=== PATIENT | male | born 1945 | race African-American/Black ===

== ENCOUNTER 2018-11-27 21:47 | Inpatient (IN) | payer MEDICARE ==
[~2018-11-27] VITALS: Ht 172.7 cm; Wt 107.0 kg
[2018-11-27] MEDS ORDERED: METRONIDAZOLE 500MG/NS 100ML 100 ML IV SCH (23:00)
[2018-11-27] MEDS ORDERED: DIPHENHYDRAMINE HCL INJ 50 MG/ML VIAL IV PRN (23:00)
[2018-11-27] MEDS ORDERED: ENALAPRILAT IV INJ 1.25 MG/ML VIAL IV PRN (23:00)
[2018-11-27] MEDS ORDERED: ACETAMINOPHEN 325 MG TAB PO PRN (23:00)
[2018-11-27] MEDS ORDERED: ONDANSETRON HCL INJ 2MG/ML 2ML 2 MG/ML VIAL IV PRN (23:00)
[2018-11-27] MEDS ORDERED: HYDROMORPHONE 1MG/1ML INJ IV PRN (23:00)
[2018-11-27] MEDS ORDERED: SODIUM CHLORIDE 0.9% 1000ML 1,000 ML IV STA (23:37)
[2018-11-28] VITALS (8 sets, daily range): BP systolic 128–151; BP diastolic 59–65
[2018-11-28] MEDS ORDERED: PIPER-TAZ 3.375 GM 50 ML IV SCH
--- NOTE | 2018-11-28 00:36 | NUR ---
Called [facility] to transport pt to [facility] hospital room 212
--- NOTE | 2018-11-28 00:43 | NUR ---
Report to GENEVA Cabral
--- NOTE | 2018-11-28 00:53 | Diagnostic Imaging Report ---
EXAM: CT Abdomen and Pelvis WITH contrast INDICATION: Pain. COMPARISON: None. TECHNIQUE: Abdomen and pelvis were scanned utilizing a multidetector helical scanner from the lung base to the pubic symphysis after administration of IV contrast. Coronal and sagittal reformations were obtained. Routine protocol was performed. Scan was performed when during portal venous phase. IV CONTRAST: 100 cc Isovue-370 ORAL CONTRAST: Water RADIATION DOSE: Total DLP: 822.08 mGy*cm Estimated effective dose: (DLP x 0.015 x size factor) mcv COMPLICATIONS: None FINDINGS: LINES and TUBES: None. LOWER THORAX: Coronary artery calcifications. Bibasilar reticular nodular densities particularly in the lingula with tree-in-bud pattern may be infectious or inflammatory in etiology. HEPATOBILIARY: Heterogeneous low attenuation of the hepatic parenchyma suggestive of steatosis. No focal hepatic lesions. No biliary ductal dilation. GALLBLADDER: No radio-opaque stones or sludge. No wall thickening. SPLEEN: No splenomegaly. PANCREAS: No focal masses or ductal dilatation. ADRENALS: No adrenal nodules KIDNEYS/URETERS: Kidneys enhance symmetrically. No hydronephrosis. No cystic or solid mass lesions. 4.7 mm nonobstructing calculus in the upper pole of the left kidney. GI TRACT: No abnormal distention, wall thickening, or evidence of bowel obstruction. Moderate to large volume of stool within the colon. Large volume of stool within the rectosigmoid. Appendix is normal. PELVIC ORGANS/BLADDER: Status post prostatectomy. LYMPH NODES: No lymphadenopathy. VESSELS: There is moderate atherosclerotic disease in the aorta and major arterial branches. Reflux of contrast into the intrahepatic IVC and hepatic veins may be related to right-sided failure versus PERITONEUM / RETROPERITONEUM: No free air or fluid. BONES: Median sternotomy wires. Multilevel Schmorl nodes. SOFT TISSUES: Tiny umbilical hernia containing a knuckle of small bowel loop. IMPRESSION: 1. Findings may reflect constipation with fecal impaction. 2. Nonobstructing left renal calculus. 3. Bibasilar reticular nodular opacities may be infectious or inflammatory in etiology; correlate clinically. Signed by: Dr. Dorene Jiménez M.D. on 11/28/2018 12:49 AM
[2018-11-28] MEDS ORDERED: MULTIVITAMINS1 EAC6 (01:03)
[2018-11-28] MEDS ORDERED: ALBUTEROL0.63 MG/3 IH (01:03)
[2018-11-28] MEDS ORDERED: MECLIZINE HCL12.5 MG PO (01:03)
[2018-11-28] MEDS ORDERED: NITROGLYCERIN0.4 MG SL (01:03)
[2018-11-28] MEDS ORDERED: MOMETASONE FURO30 ML INH (01:03)
[2018-11-28] MEDS ORDERED: SPIRIVA18 MCG INH (01:03)
[2018-11-28] MEDS ORDERED: GABAPENTIN300 MG PO (01:03)
[2018-11-28] MEDS ORDERED: SENNOSIDES8.6 MG PO (01:03)
[2018-11-28] MEDS ORDERED: ATORVASTATIN CA80 MG PO (01:03)
[2018-11-28] MEDS ORDERED: METOPROLOL TART25 MG PO (01:03)
[2018-11-28] MEDS ORDERED: AMLODIPINE BESYL5 MG PO (01:03)
[2018-11-28] MEDS ORDERED: PANTOPRAZOLE SO20 MG PO (01:03)
[2018-11-28] MEDS ORDERED: MORPHINE SULFATE INJ 4 MG/ML INJ 1ML IV STA (01:09)
--- NOTE | 2018-11-28 01:12 | NUR ---
[facility] here to transport pt to room 212
[2018-11-28] MEDS: SODIUM CHLORIDE 0.45% 1,000 ML IV SCH ×2 (02:04→06:56)
[2018-11-28] MEDS ORDERED: DOCUSATE SODIU100 MG PO (02:08)
[2018-11-28] MEDS ORDERED: ASPIRIN EC81 MG PO (02:08)
[2018-11-28] MEDS ORDERED: BISACODYL 5 MG TAB EC PO ONE ×3 (05:00→06:00)
[2018-11-28] MEDS: HYDROMORPHONE 2MG/ML 2 MG/ML ML IV PRN ×3 (06:12→21:26)
--- NOTE | 2018-11-28 07:00 | NUR ---
BEDSIDE SHIFT CHANGE REPORT FROM NIGHT RN. PT DENIES NEEDS AT THIS TIME.
[2018-11-28] MEDS: PIPER-TAZ 3.375 GM 50 ML IV SCH ×3 (08:00→19:52)
[2018-11-28] MEDS: METRONIDAZOLE 500MG/NS 100ML 100 ML IV SCH ×2 (08:00→18:36)
[2018-11-28] MEDS ORDERED: PANTOPRAZOLE 40 MG 10ML VIAL IV SCH (09:00)
[2018-11-28] MEDS ORDERED: FAMOTIDINE 20 MG/2 ML VIAL IV SCH (09:00)
--- NOTE | 2018-11-28 10:43 | NUR ---
H&P cc: rectal pain HPI: 73yoM, PCP ?, developed rectal pain, found to have anorectal abscess. Pt denies cp/sob. PMH: HTN, HLD, GERD, CAD s/p CABG, Prostate CA s/p sx PSHx: CABG, prostate Allergies; see emr FH/SH; ; no cig/etoh Meds; see MAR ROS: unreliable v/s; revd PE tired appearing anicteric ns1s2 mod bs soft nt nd rectal region with no visible lesion no e/t awake; mott skin dry flat affect labs/med; revd A/P: 73yoM Anorectal abscess- IV abx; sx consult; Obesity BMI 34.4- screen for DM A.flutter- per cardio; AV blockade CAD with hx CABG- Systolic CHF LVEF 30%; will need furthr eval; may beed eval of coronaries now versus later- defer to cardio HTN- BB HLD- statin GERD- ppi Prop: scd; ppi dispo: Calos Shelton MD, PhD.
--- NOTE | 2018-11-28 11:00 | NUR ---
DISCUSSED PT WITH DR. PEARSON. PT NOT READY TO BE CLEARED FOR SURGERY AT THIS TIME. THIS NURSE CALLED OR AND DIRECTOR OF CONTENT MARKETING. OR WILL CONTACT DR. JOHNSON. THIS NURSE ALSO CALLED AND NOTIFIED PT'S POA.
[2018-11-28 12:00] LABS: CHOL/HDL RATIO 2.5 (3.9-4.7)
[2018-11-28] MEDS: DOCUSATE SODIUM 100 MG CAP PO SCH (12:35)
[2018-11-28] MEDS: AMLODIPINE BESYLATE 5 MG TAB PO SCH (12:35)
--- NOTE | 2018-11-28 12:43 | Consultation ---
DATE OF CONSULTATION: 11/28/2018 HISTORY OF PRESENT ILLNESS: The patient is a 73-year-old male, presents with complaints of pain and swelling with some drainage from the perianal area. Says this has been going on for about a week. He has had some subjective fever. He also had some difficulty controlling his bowels. He has CT of the abdomen and pelvis that did not reveal any definite abnormality in this area except for large amount of stool within the rectum. PAST MEDICAL HISTORY: Significant for coronary artery disease, previous coronary artery bypass surgery, history of hypercholesterolemia, hypertension, and also COPD. MEDICATIONS: At home are albuterol, amlodipine, aspirin, atorvastatin, Colace, gabapentin, meclizine, metoprolol, mometasone, vitamins, nitroglycerin, Protonix, sennosides, and tiotropium. ALLERGIES: HE HAS NO KNOWN ALLERGIES. FAMILY HISTORY: Noncontributory. SOCIAL HISTORY: The patient is a former smoker. Former drinker, but quit about four years ago. REVIEW OF SYSTEMS: As stated above, otherwise was negative. PHYSICAL EXAMINATION: GENERAL: The patient is awake and alert. VITAL SIGNS: Normal. He is not tachycardic. He is afebrile. HEENT: There is no scleral icterus. NECK: No masses. LUNGS: Equal breath sounds are clear bilaterally. CARDIAC: Regular rate and rhythm. Normal S1, S2 without murmur, S3, or S4. He has a healed sternotomy wound. ABDOMEN: Soft. There is no tenderness. No mass. No organomegaly. RECTAL: Stool in the perianal area. There is swelling and tenderness in the left perianal area. EXTREMITIES: Have no edema. NEUROLOGIC: Grossly intact. LABS: White blood cell count was normal. Differential was normal. Chemistries were essentially normal. ASSESSMENT: A 73-year-old male with perirectal abscess with underlying cardiac disease. Also, he is on blood thinners per history. The patient will best be treated with incision and drainage of the abscess. Plan to schedule for later today and consult Cardiology for preop cardiac evaluation. Procedure was explained to the patient including risks, benefits, and alternatives. He understands. He has had the opportunity to ask questions. Thank you for asking me to see Mr. Harden. MD ERED Vieira/CRISSY /[id number]
[2018-11-28] MEDS: MECLIZINE HCL 12.5 MG TAB PO SCH ×2 (14:29→20:42)
[2018-11-28] MEDS: GABAPENTIN 300 MG CAP PO SCH ×2 (14:29→20:43)
--- NOTE | 2018-11-28 15:29 | Consultation ---
DATE OF CONSULTATION: 11/28/2018 Cardiology Consultation Thank you so much for asking me to see this nice man in consultation. Mr. Harden is a complex and elderly 73-year-old black man, who presented to the outlying emergency room overnight with a complaint of what he thought was hemorrhoids. HISTORY OF PRESENT ILLNESS: The patient reports that he has been having rectal pain and been having only "tiny bowel movements" since last , the 20 of November. He decided to visit the emergency room. Past medical history is actually long and complex. He is currently living in [place], but visiting family here. He had a coronary artery bypass graft surgery at the [facility] in July 2017 he reports after having "two heart attacks," further records are not available. He has a medication list available from the [facility] that indicates albuterol inhaler, amlodipine 5 mg daily, atorvastatin 80 mg daily. He seems to have stopped clopidogrel, it is crossed off. Gabapentin 300 mg three times a day, meclizine 25 mg three times a day p.r.n., metoprolol tartrate 25 mg twice a day, mometasone inhaler, nitroglycerin sublingual p.r.n., pantoprazole 40 mg daily, sennosides, tiotropium, aspirin 81 mg daily, and Colace 100 mg twice a day. REVIEW OF SYSTEMS: Not available. The patient is a poor historian and keeps referring me to his daughter who keeps track of his medical problems, but she is not available. PERSONAL AND SOCIAL HISTORY: The patient reports he is not smoking. 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 PHYSICAL EXAMINATION: GENERAL: At this time shows a large obese man who is 5 feet 8 inches tall, weighing 226 pounds. He is slow to answer questions, but alert and responsive, fluent. VITAL SIGNS: Blood pressure 137/61, pulse 67 and regular. HEAD, EYES, EARS, NOSE, AND THROAT: Relatively unremarkable. NECK: No jugular venous distention. No bruits. THORAX: Has healed midline sternotomy. HEART: Heart sounds S1, S2 are equal. No murmurs. LUNGS: Relatively clear. ABDOMEN: Protuberant with chest tube incisions healed. Normal bowel sounds. Nontender. EXTREMITIES: No cyanosis, clubbing, or edema. PERTINENT LABORATORY STUDIES: On the chart show hemoglobin of 8.0, glucose 112. CT scan of the abdomen suggest obstipation, but no obstruction. No EKG on the chart. However, echocardiogram has been done by the clean room technician, I have not read it. The earlier report estimate ejection fraction is 30% with left ventricular hypertrophy. ASSESSMENT: 1. Constipation/rectal abscess. 2. Coronary artery disease with previous coronary artery bypass graft surgery in 2017 after two myocardial infarctions by his report. 3. Anemia. PLAN: We will check EKG and review echocardiogram. This is a complex patient and complex setting. He is not ready for any surgery at this time. MD CHAGO Starkey/CRISSY /[id number] cc: MD Terell Damian MD
[2018-11-28] MEDS: METOPROLOL TARTRATE 25 MG TAB PO SCH (18:37)
--- NOTE | 2018-11-28 19:16 | NUR ---
NO STOOL OR BM THIS SHIFT.
--- NOTE | 2018-11-28 20:42 | NUR ---
COLLECTED STOOL SAMPLE AND SENT TO LAB
[2018-11-28] MEDS: ATORVASTATIN 40 MG TAB PO SCH (20:43)
[2018-11-28] MEDS ORDERED: NON-FORMULARY MEDICATION (Atorvastatin Calcium 80 MG) PO SCH (21:00)
[2018-11-29] VITALS (8 sets, daily range): BP systolic 110–152; BP diastolic 56–82
[2018-11-29] MEDS: METRONIDAZOLE 500MG/NS 100ML 100 ML IV SCH ×3 (00:50→16:00)
[2018-11-29] MEDS: PIPER-TAZ 3.375 GM 50 ML IV SCH ×4 (01:48→20:00)
--- NOTE | 2018-11-29 07:17 | NUR ---
pt asleep resp even and unlabored at this time no distress noted, pt arousal to touch , no c/o pain when asked , call light in reach.
[2018-11-29] MEDS: PANTOPRAZOLE SOD 40 MG TABEC PO SCH (07:30)
[2018-11-29] MEDS: MECLIZINE HCL 12.5 MG TAB PO SCH ×3 (09:00→21:00)
[2018-11-29] MEDS ORDERED: NON-FORMULARY MEDICATION (Pantoprazole Sodium 40 MG) PO SCH (09:00)
[2018-11-29] MEDS: DOCUSATE SODIUM 100 MG CAP PO SCH (09:00)
[2018-11-29] MEDS: AMLODIPINE BESYLATE 5 MG TAB PO SCH (09:00)
[2018-11-29] MEDS: GABAPENTIN 300 MG CAP PO SCH ×3 (09:00→21:00)
[2018-11-29] MEDS: METOPROLOL TARTRATE 25 MG TAB PO SCH ×2 (13:30→17:00)
--- NOTE | 2018-11-29 13:45 | NUR ---
SOCIAL WORK INITIAL ASSESSMENT Ceramic Painter to bedside to discuss plan of care with patient/family. CM/SW role and care transitions discussed. Anticipated discharge plan discussed along with duration of care. CM/SW discussed patients right to make decisions in care. CM/SW work hours given. Patient lives: IN APARTMENT WITH DAUGHTER BUT TRAVELS BACK AND FORTH TO FAMILY IN [place] Admit/Transfer: VIA ED POA/Emergency contact: JUDIE [phone] Current/Previous Home Health: NONE PCP/Follow-up Care: [facility] Current/Previous DME: RANJANA LEACH Other Services: NONE Employment Status: RETIRED Areas of Concerns: NONE Referral Needs: NONE Education Needs: NONE IMM/EWING given and signed (if applicable): NA Goal for discharge: RETURN HOME CM/SW left business card at the bedside with contact information. Name and number was also written on the patients whiteboard. Patient verbalized understanding of discussion. CM will follow-up with ongoing discharge and transition of care needs.
--- NOTE | 2018-11-29 15:20 | NUR ---
IM_ progress note O/N; no events ROS: unreliable v/s; revd PE tired appearing anicteric ns1s2 mod bs soft nt nd rectal region with no visible lesion no e/t awake; mott skin dry flat affect labs/med; revd A/P: 73yoM Anorectal abscess- IV abx; sx consult; Obesity BMI 34.4- screen for DM A.flutter- per cardio; AV blockade CAD with hx CABG- Systolic CHF LVEF 30%; will need furthr eval; may beed eval of coronaries now versus later- defer to cardio HTN- BB HLD- statin GERD- ppi Prop: scd; ppi dispo: 11/29 a1c/LDL 6.7/40. Check labs; cont abx; Calos Shelton MD, PhD.
[2018-11-29 17:06] LABS: BASOPHILS % 0.2 % (0.0-1.0); EOSINOPHILS # (AUTO) 0.1 (0.0-0.4); EOSINOPHILS % 0.9 % (0.0-6.0); HEMATOCRIT 39.5 % (38.2-49.6); HEMOGLOBIN 13.7 g/dL (14.0-18.0); LYMPHOCYTES # (AUTO) 1.8 (1.0-3.2); LYMPHOCYTES % 20.8 % (18.0-39.1); MEAN CORPUSCULAR HEMOGLOBIN 31.5 pg (28-32); MEAN CORPUSCULAR HGB CONC 34.7 g/dL (31-35); MEAN CORPUSCULAR VOLUME 90.8 fL (81-99); MONOCYTES # (AUTO) 0.9 (0.2-0.8); MONOCYTES % 9.9 % (4.4-11.3); NEUTROPHILS # (AUTO) 5.9 (2.1-6.9); PLATELET COUNT 250 x10e3/uL (140-360); RED BLOOD COUNT 4.35 x10e6/uL (4.3-5.7); RED CELL DISTRIBUTION WIDTH 14.4 % (11.7-14.4)
[2018-11-29] MEDS ORDERED: ONDANSETRON HCL 4 MG ORAL DISINTEGRATING TAB PO PRN (17:30)
[2018-11-29 18:04] LABS: BLOOD UREA NITROGEN 19 mg/dL (7-26); BUN/CREATININE RATIO 15 (6-25); CALCIUM 8.4 mg/dL (8.4-10.2); CARBON DIOXIDE 23 mmol/L (22-29); CHLORIDE 99 mmol/L (98-107); CREATININE, SERUM 1.27 mg/dL (0.72-1.25); EST GLOMERULAR FILTRATION RATE > 60 ML/MIN (60-); GLUCOSE 94 mg/dL (74-118); MAGNESIUM 1.7 MG/DL (1.3-2.1); PHOSPHORUS 3.8 MG/DL (2.3-4.7); SODIUM 136 mmol/L (136-145)
--- NOTE | 2018-11-29 19:41 | NUR ---
report given to oncoming nurse, for cont. care.
--- NOTE | 2018-11-29 20:55 | NUR ---
Received change of shift report from AM nurse. Rounds completed.
[2018-11-29] MEDS: ATORVASTATIN 40 MG TAB PO SCH (21:00)
[2018-11-29] MEDS ORDERED: POTASSIUM CHLORIDE 20 MEQ TAB CR PO STA (22:06)
[2018-11-30] VITALS (7 sets, daily range): BP systolic 101–133; BP diastolic 50–65
--- NOTE | 2018-11-30 00:01 | NUR ---
Dr Wade on the floor to see patient. Orders received.
[2018-11-30] MEDS: PIPER-TAZ 3.375 GM 50 ML IV SCH ×4 (01:35→20:00)
--- NOTE | 2018-11-30 02:23 | NUR ---
Patient resting quitly at this time with no c/o pain ord discomfort. Patient states he had 6 BM diarehea. is aware.
[2018-11-30 05:56] LABS: BASOPHILS % 0.5 % (0.0-1.0); EOSINOPHILS # (AUTO) 0.1 (0.0-0.4); EOSINOPHILS % 1.4 % (0.0-6.0); HEMATOCRIT 35.8 % (38.2-49.6); HEMOGLOBIN 12.1 g/dL (14.0-18.0); LYMPHOCYTES # (AUTO) 1.8 (1.0-3.2); LYMPHOCYTES % 26.7 % (18.0-39.1); MEAN CORPUSCULAR HEMOGLOBIN 30.9 pg (28-32); MEAN CORPUSCULAR HGB CONC 33.8 g/dL (31-35); MEAN CORPUSCULAR VOLUME 91.6 fL (81-99); MONOCYTES # (AUTO) 0.5 (0.2-0.8); MONOCYTES % 8.1 % (4.4-11.3); NEUTROPHILS # (AUTO) 4.2 (2.1-6.9); NEUTROPHILS % 62.8 % (38.7-80.0); PLATELET COUNT 206 x10e3/uL (140-360); RED BLOOD COUNT 3.91 x10e6/uL (4.3-5.7); RED CELL DISTRIBUTION WIDTH 14.4 % (11.7-14.4)
[2018-11-30 06:10] LABS: MAGNESIUM 1.7 MG/DL (1.3-2.1); PHOSPHORUS 2.3 MG/DL (2.3-4.7); POTASSIUM 3.2 mmol/L (3.5-5.1)
[2018-11-30 06:29] LABS: ALANINE AMINOTRANSFERASE 17 IU/L (0-55); ALBUMIN 2.4 g/dL (3.5-5.0); ALBUMIN/GLOBULIN RATIO 0.6 (0.8-2.0); ALKALINE PHOSPHATASE 80 IU/L (40-150); ANION GAP 13.2 mmol/L (8-16); BLOOD UREA NITROGEN 17 mg/dL (7-26); BUN/CREATININE RATIO 15 (6-25); CALCIUM 8.1 mg/dL (8.4-10.2); CARBON DIOXIDE 25 mmol/L (22-29); CHLORIDE 104 mmol/L (98-107); CREATININE, SERUM 1.11 mg/dL (0.72-1.25); EST GLOMERULAR FILTRATION RATE > 60 ML/MIN (60-); GLUCOSE 156 mg/dL (74-118); POTASSIUM 3.2 mmol/L (3.5-5.1); SODIUM 139 mmol/L (136-145)
--- NOTE | 2018-11-30 07:18 | NUR ---
pt asleep resp even and unlabored, pt lying on his left side pt arousal to name and touch no distress noted, call light in reach.
[2018-11-30] MEDS: PANTOPRAZOLE SOD 40 MG TABEC PO SCH (07:30)
[2018-11-30] MEDS: METRONIDAZOLE 500MG/NS 100ML 100 ML IV SCH ×3 (08:00→18:06)
[2018-11-30] MEDS: AMLODIPINE BESYLATE 5 MG TAB PO SCH (09:00)
[2018-11-30] MEDS: METOPROLOL TARTRATE 25 MG TAB PO SCH ×2 (09:00→18:09)
[2018-11-30] MEDS: DOCUSATE SODIUM 100 MG CAP PO SCH (09:00)
[2018-11-30] MEDS: GABAPENTIN 300 MG CAP PO SCH ×3 (09:00→20:09)
[2018-11-30] MEDS: MECLIZINE HCL 12.5 MG TAB PO SCH ×3 (09:00→20:09)
[2018-11-30] MEDS ORDERED: SODIUM CHLORIDE 0.9% 250ML 250 ML ONE (11:10)
--- NOTE | 2018-11-30 18:07 | NUR ---
IM_ progress note O/N; no events ROS: unreliable v/s; revd PE tired appearing anicteric ns1s2 mod bs soft nt nd rectal region with no visible lesion no e/t awake; mott skin dry flat affect labs/med; revd A/P: 73yoM Anorectal abscess- IV abx; sx consult; Obesity BMI 34.4- screen for DM A.flutter- per cardio; AV blockade CAD with hx CABG- Systolic CHF LVEF 30%; will need furthr eval; may beed eval of coronaries now versus later- defer to cardio HTN- BB HLD- statin GERD- ppi Prop: scd; ppi dispo: 11/29 a1c/LDL 6.7/40. Check labs; cont abx; 11/30 replace Britt; Calos Shelton MD, PhD.
[2018-11-30] MEDS ORDERED: POTASSIUM CHLORIDE 20 MEQ TAB CR PO ONE (18:30)
--- NOTE | 2018-11-30 19:26 | NUR ---
report given to oncoming nurse, for continued care.
[2018-11-30] MEDS: ATORVASTATIN 40 MG TAB PO SCH (20:09)
[2018-12-01] VITALS (8 sets, daily range): BP systolic 112–167; BP diastolic 53–77
[2018-12-01] MEDS: PIPER-TAZ 3.375 GM 50 ML IV SCH ×4 (02:00→20:17)
--- NOTE | 2018-12-01 07:00 | NUR ---
RCD PT AT BED PT IS ALERT AND ORIENTED RESTING ON BED NO SIGNS OF ANY DISTRESS NOTED BED LOW AND LOCKED CALL LIGHT IN REACH
[2018-12-01] MEDS: PANTOPRAZOLE SOD 40 MG TABEC PO SCH (07:30)
[2018-12-01] MEDS: METRONIDAZOLE 500MG/NS 100ML 100 ML IV SCH ×3 (08:00→16:00)
[2018-12-01] MEDS: DOCUSATE SODIUM 100 MG CAP PO SCH (09:00)
[2018-12-01] MEDS: AMLODIPINE BESYLATE 5 MG TAB PO SCH (09:00)
[2018-12-01] MEDS: MECLIZINE HCL 12.5 MG TAB PO SCH ×3 (09:00→21:25)
[2018-12-01] MEDS: METOPROLOL TARTRATE 25 MG TAB PO SCH ×2 (09:00→17:00)
[2018-12-01] MEDS: GABAPENTIN 300 MG CAP PO SCH ×3 (09:00→21:25)
--- NOTE | 2018-12-01 10:02 | NUR ---
IM_ progress note O/N; no events ROS: unreliable v/s; revd PE tired appearing anicteric ns1s2 mod bs soft nt nd rectal region with no visible lesion no e/t awake; mott skin dry flat affect labs/med; revd A/P: 73yoM Anorectal abscess- IV abx; sx consult; Obesity BMI 34.4- screen for DM A.flutter- per cardio; AV blockade CAD with hx CABG- Systolic CHF LVEF 30%; will need furthr eval; may beed eval of coronaries now versus later- defer to cardio HTN- BB HLD- statin GERD- ppi Prop: scd; ppi dispo: 11/29 a1c/LDL 6.7/40. Check labs; cont abx; 11/30 replace K; 12/01 check K Calos Shelton MD, PhD.
--- NOTE | 2018-12-01 19:00 | NUR ---
PT RESTING ON BED BED SIDE REPORT GIVEN TO ONCOMING NURSE
[2018-12-01] MEDS: ATORVASTATIN 40 MG TAB PO SCH (21:25)
[2018-12-02] VITALS (7 sets, daily range): BP systolic 119–186; BP diastolic 56–81
[2018-12-02] MEDS: METRONIDAZOLE 500MG/NS 100ML 100 ML IV SCH ×3 (00:40→16:00)
[2018-12-02] MEDS ORDERED: BISACODYL 5 MG TAB EC PO ONE ×2 (01:00→01:30)
[2018-12-02] MEDS: PIPER-TAZ 3.375 GM 50 ML IV SCH ×4 (01:55→20:15)
[2018-12-02 06:17] LABS: BASOPHILS % 0.4 % (0.0-1.0); EOSINOPHILS # (AUTO) 0.1 (0.0-0.4); EOSINOPHILS % 1.8 % (0.0-6.0); HEMOGLOBIN 11.9 g/dL (14.0-18.0); LYMPHOCYTES # (AUTO) 1.4 (1.0-3.2); LYMPHOCYTES % 27.5 % (18.0-39.1); MEAN CORPUSCULAR HEMOGLOBIN 31.1 pg (28-32); MEAN CORPUSCULAR VOLUME 91.4 fL (81-99); MONOCYTES # (AUTO) 0.5 (0.2-0.8); NEUTROPHILS # (AUTO) 3.1 (2.1-6.9); NEUTROPHILS % 60.9 % (38.7-80.0); PLATELET COUNT 193 x10e3/uL (140-360); RED BLOOD COUNT 3.83 x10e6/uL (4.3-5.7); RED CELL DISTRIBUTION WIDTH 14.6 % (11.7-14.4)
[2018-12-02] MEDS ORDERED: DIATRIZOATE MEGL/DIATRIZOA SOD 30 ML BTL PO ONE (06:18)
[2018-12-02 06:32] LABS: ANION GAP 11.3 mmol/L (8-16); BLOOD UREA NITROGEN 9 mg/dL (7-26); BUN/CREATININE RATIO 10 (6-25); CARBON DIOXIDE 26 mmol/L (22-29); CHLORIDE 103 mmol/L (98-107); EST GLOMERULAR FILTRATION RATE > 60 ML/MIN (60-); GLUCOSE 101 mg/dL (74-118); POTASSIUM 3.3 mmol/L (3.5-5.1); SODIUM 137 mmol/L (136-145)
--- NOTE | 2018-12-02 07:16 | NUR ---
RCD PT AT BED PT IS ALERT AND ORIENTED PT RESTING ON BED NO SIGNS OF ANY DISTRESS NOTED IV PATENT BED LOW AND LOCKED CALL LIGHT IN REACH
[2018-12-02] MEDS: PANTOPRAZOLE SOD 40 MG TABEC PO SCH (07:30)
--- NOTE | 2018-12-02 07:56 | NUR ---
PT WENT TO PROCEDURE IN SAFE CONDITION
--- NOTE | 2018-12-02 07:56 | NUR ---
IM_ progress note O/N; no events ROS: unreliable v/s; revd PE tired appearing anicteric ns1s2 mod bs soft nt nd rectal region with no visible lesion no e/t awake; mott skin dry flat affect labs/med; revd A/P: 73yoM Anorectal abscess- IV abx; sx consult; Obesity BMI 34.4- screen for DM A.flutter- per cardio; AV blockade CAD with hx CABG- Systolic CHF LVEF 30%; will need furthr eval; may beed eval of coronaries now versus later- defer to cardio HTN- BB HLD- statin GERD- ppi Prop: scd; ppi dispo: 11/29 a1c/LDL 6.7/40. Check labs; cont abx; 11/30 replace K; 12/01 check K 12/02 replace K with 40PO. f/u repeat CT today. CT unclear; may need endoscopy for visualization vs MRI. Calos Shelton MD, PhD.
[2018-12-02] MEDS ORDERED: POTASSIUM CHLORIDE 20 MEQ TAB CR PO NR (08:30)
--- NOTE | 2018-12-02 08:51 | Diagnostic Imaging Report ---
EXAM: CT Abdomen and Pelvis WITH contrast INDICATION: Anorectal abscess, cancer. COMPARISON: CT Abdomen/Pelvis with contrast 11/27/2018. TECHNIQUE: Abdomen and pelvis were scanned utilizing a multidetector helical scanner from the lung base to the pubic symphysis after administration of IV contrast. Coronal and sagittal reformations were obtained. Routine protocol was performed. Scan was performed when during portal venous phase. IV CONTRAST: 100 cc Isovue-370 ORAL CONTRAST: Water RADIATION DOSE: Total DLP: 764.65 mGy*cm Dose modulation, iterative reconstruction, and/or weight based adjustment of the mA/kV was utilized to reduce the radiation dose to as low as reasonably achievable. COMPLICATIONS: None FINDINGS: LINES and TUBES: None. LOWER THORAX: Coronary artery calcifications. Interval development of trace bilateral pleural effusions. Again noted are bilateral dependent tree-in-bud and nodular opacities, most pronounced in the lingula and left lower lobe, and to a lesser extent in the right middle and lower lobes. HEPATOBILIARY: Heterogeneous low attenuation of the hepatic parenchyma suggestive of steatosis. No focal hepatic lesions. No biliary ductal dilation. GALLBLADDER: The gallbladder is decompressed without evidence of wall thickening or stone. There is pericholecystic fluid. SPLEEN: No splenomegaly. PANCREAS: No focal masses or ductal dilatation. ADRENALS: No adrenal nodules KIDNEYS/URETERS: Kidneys enhance symmetrically. No hydronephrosis. No evidence of mass. There is a 5 mm nonobstructing calculus in left upper pole stone. GI TRACT: No abnormal distention, wall thickening, or evidence of bowel obstruction. Moderate to large volume of stool within the colon, as before. Interval decrease of stool within the rectum. The anorectal region is not well evaluated. There is mild stranding surrounding the distal rectum (series 2, image 79). Appendix is normal. PELVIC ORGANS/BLADDER: Status post prostatectomy. The bladder is partially decompressed. LYMPH NODES: No lymphadenopathy. VESSELS: There is moderate to extensive atherosclerotic disease in the aorta and branch vessels. There is stenosis at the origins of the celiac artery and SMA, although the degree of stenosis is difficult to quantify. Both vessels appear patent. PERITONEUM / RETROPERITONEUM: No free air or fluid. BONES/SOFT TISSUES: No acute osseous abnormality. No suspicious lytic or blastic lesions. Tiny umbilical hernia. IMPRESSION: The distal rectum and anus is not well evaluated on this study. There is mild stranding surrounding the distal rectum. This is of unclear etiology and may be post surgical or inflammatory. The reason for this study was reportedly for anorectal abscess/cancer. No definite abscess is visualized. If there is clinical concern for anorectal pathology, MRI is more sensitive for evaluation. Also suggest direct inspection for mass. Interval decrease in stool within the rectum. Dependent lower lung tree in bud opacities with interval development of trace bilateral pleural effusions, likely reflecting infectious process. Suggest follow-up chest CT in 3 months to assess for resolution. Decompressed gallbladder with pericholecystic fluid, likely reflecting volume status rather than cholecystitis. Diffuse hepatic steatosis. Signed by: Dr. Giselle Mckeon MD on 12/02/2018 8:48 AM
[2018-12-02] MEDS: MECLIZINE HCL 12.5 MG TAB PO SCH ×3 (08:55→20:58)
[2018-12-02] MEDS: LUBIPROSTONE 24 MCG CAP PO SCH ×3 (08:55→18:18)
[2018-12-02] MEDS: GABAPENTIN 300 MG CAP PO SCH ×3 (08:55→20:58)
[2018-12-02] MEDS: DOCUSATE SODIUM 100 MG CAP PO SCH (08:55)
[2018-12-02] MEDS ORDERED: SODIUM CHLORIDE 0.9% 50ML 50 ML ONE (08:56)
[2018-12-02] MEDS: AMLODIPINE BESYLATE 5 MG TAB PO SCH (08:56)
[2018-12-02] MEDS: METOPROLOL TARTRATE 25 MG TAB PO SCH ×2 (08:56→17:00)
[2018-12-02] MEDS ORDERED: IOPAMIDOL 370 MG/ML 200 ML INFUS..BTL INJ ONE (08:56)
--- NOTE | 2018-12-02 18:12 | NUR ---
PAGED AND CLARIFIED THE AMITIZA DOSE 8 MCG IS NOT AVAILABLE IN THE PHARMACY HE CHANGED THE DOSE
--- NOTE | 2018-12-02 18:39 | NUR ---
PT RESTING ON BED BED SIDE REPORT GIVEN TO ONCOMING NURSE
[2018-12-02] MEDS: ATORVASTATIN 40 MG TAB PO SCH (20:58)
[2018-12-03] VITALS: BP 149/67
[2018-12-03] MEDS: METRONIDAZOLE 500MG/NS 100ML 100 ML IV SCH ×2 (00:22→09:30)
[2018-12-03] MEDS: PIPER-TAZ 3.375 GM 50 ML IV SCH ×2 (01:30→09:17)
[2018-12-03 04:00] VITALS: BP 142/58
[2018-12-03 06:07] LABS: BASOPHILS % 0.4 % (0.0-1.0); EOSINOPHILS # (AUTO) 0.1 (0.0-0.4); EOSINOPHILS % 1.3 % (0.0-6.0); HEMATOCRIT 36.4 % (38.2-49.6); HEMOGLOBIN 12.3 g/dL (14.0-18.0); LYMPHOCYTES # (AUTO) 1.3 (1.0-3.2); LYMPHOCYTES % 24.8 % (18.0-39.1); MEAN CORPUSCULAR HEMOGLOBIN 31.3 pg (28-32); MEAN CORPUSCULAR HGB CONC 33.8 g/dL (31-35); MEAN CORPUSCULAR VOLUME 92.6 fL (81-99); MONOCYTES # (AUTO) 0.5 (0.2-0.8); MONOCYTES % 8.6 % (4.4-11.3); NEUTROPHILS # (AUTO) 3.4 (2.1-6.9); NEUTROPHILS % 64.5 % (38.7-80.0); PLATELET COUNT 216 x10e3/uL (140-360); RED BLOOD COUNT 3.93 x10e6/uL (4.3-5.7); RED CELL DISTRIBUTION WIDTH 14.6 % (11.7-14.4)
[2018-12-03 06:31] LABS: ANION GAP 11.6 mmol/L (8-16); BLOOD UREA NITROGEN 7 mg/dL (7-26); BUN/CREATININE RATIO 8 (6-25); CALCIUM 8.4 mg/dL (8.4-10.2); CARBON DIOXIDE 22 mmol/L (22-29); CHLORIDE 106 mmol/L (98-107); CREATININE, SERUM 0.84 mg/dL (0.72-1.25); EST GLOMERULAR FILTRATION RATE > 60 ML/MIN (60-); GLUCOSE 98 mg/dL (74-118); POTASSIUM 3.6 mmol/L (3.5-5.1); SODIUM 136 mmol/L (136-145)
--- NOTE | 2018-12-03 07:00 | NUR ---
bedside rounds compelte no distress noted, updated on poc vocied understanding, denies pain at this time, call light in reach will continue ot monitor
--- NOTE | 2018-12-03 07:45 | NUR ---
Discharge summary: Principal Dx: Anorectal abscess Constipation Secondary Dx: Obesity BMI 34.4- screen for DM A.flutter- per cardio; AV blockade CAD with hx CABG- Systolic CHF LVEF 30%; will need furthr eval; may beed eval of coronaries now versus later- defer to cardio HTN- BB HLD- statin GERD- ppi Hospital course: 11/29 a1c/LDL 6.7/40. Check labs; cont abx; 11/30 replace K; 12/01 check K 12/02 replace K with 40PO. f/u repeat CT today. CT unclear; may need endoscopy for visualization vs MRI. 12/03 cont abx; f/u GI rec. f/u GI specialist in [place] in next few days for colonoscopy PCP 1 week d/c home on flagyl/levaquin and bowel regimen stable d/c>35mins Calos Shelton MD, PhD.
[2018-12-03] MEDS ORDERED: MIRALAX17 GM PO (07:48)
[2018-12-03] MEDS ORDERED: AMITIZA24 MCG PO (07:48)
[2018-12-03] MEDS ORDERED: FLAGYL500 MG PO (07:51)
[2018-12-03] MEDS ORDERED: LEVAQUIN500 MG PO (07:55)
--- NOTE | 2018-12-03 07:56 | NUR ---
ADDENDUM to d/C summary: Questionable abscess- no leukocytosis or fever; BP normal; home with levaquin and flagyl; Possible mass. Pt wants to have colonoscopy by own GI specialist in next few days; He is hemodynamically stable; Calos Shelton MD, PhD.
[2018-12-03 08:26] VITALS: BP 125/56
[2018-12-03 09:00] VITALS: BP 125/56
[2018-12-03] MEDS: LUBIPROSTONE 24 MCG CAP PO SCH (09:00)
[2018-12-03] MEDS: MECLIZINE HCL 12.5 MG TAB PO SCH (09:00)
[2018-12-03] MEDS: DOCUSATE SODIUM 100 MG CAP PO SCH (09:00)
[2018-12-03] MEDS: PANTOPRAZOLE SOD 40 MG TABEC PO SCH (09:00)
[2018-12-03] MEDS: METOPROLOL TARTRATE 25 MG TAB PO SCH (09:00)
[2018-12-03] MEDS: GABAPENTIN 300 MG CAP PO SCH (09:00)
[2018-12-03] MEDS: AMLODIPINE BESYLATE 5 MG TAB PO SCH (09:00)
--- NOTE | 2018-12-03 09:00 | NUR ---
assessment compelte no distress noted, updated on poc voiced understanding, l hand 20g no ss of infiltration noted, r ac 20g no ss of infiltration noted, denies pain at this time, bed low/locked position, bed alarm set,no other co voiced,call light in reach will continue ot monitor
[2018-12-03 12:01] VITALS: BP 136/62
== END 2018-12-03 12:30 | disposition home or self-care (01) | DRG 345 ==
LOC: FSED 21:47 → ERHOLD 22:59 → MED/SURG2 11-28 01:29
PROVIDERS: ADMIT Internal Medicine; ATTEND Internal Medicine
PROC: 0D9P0ZZ Drainage of Rectum, Open Approach (ICD-10-PCS; principal; 2018-11-28)
DX: K61.2 Anorectal abscess (principal); I48.92 Unspecified atrial flutter; K59.00 Constipation, unspecified; I25.10 Atherosclerotic heart disease of native coronary artery without angina pectoris; Z95.1 Presence of aortocoronary bypass graft; Z79.01 Long term (current) use of anticoagulants; D64.9 Anemia, unspecified; E66.9 Obesity, unspecified; Z68.35 Body mass index [BMI] 35.0-35.9, adult; K64.9 Unspecified hemorrhoids; I25.2 Old myocardial infarction; J44.9 Chronic obstructive pulmonary disease, unspecified
CPT/HCPCS: 36415; 74177; 80048; 80053; 80061; 82270; 83036; 83735; 84100; 84132; 85025; 93005; 93306; 99284; J1200; J2405; J2543; J7050; Q9967

== ENCOUNTER 2019-06-09 08:57 | Inpatient (IN) | payer MEDICARE ==
[~2019-06-09] VITALS: Ht 172.7 cm; Wt 111.2 kg
[~2019-06-09 08:57] MED LIST: ALBUTEROL0.63 MG/3 IH; AMITIZA24 MCG PO; AMLODIPINE BESYL5 MG PO; ASPIRIN EC81 MG PO; ATORVASTATIN CA80 MG PO; DOCUSATE SODIU100 MG PO; FLAGYL500 MG PO; GABAPENTIN300 MG PO; LEVAQUIN500 MG PO; MECLIZINE HCL12.5 MG PO; METOPROLOL TART25 MG PO; MIRALAX17 GM PO; MOMETASONE FURO30 ML INH; MULTIVITAMINS1 EAC6; NITROGLYCERIN0.4 MG SL; PANTOPRAZOLE SO20 MG PO; SENNOSIDES8.6 MG PO; SPIRIVA18 MCG INH
--- OUTSIDE RECORDS SUMMARY | 2019-06-09 08:59 | XMS REPORT ---
Author Author [facility] Address Unknown Phone Unavailable Care Team Providers Care Motor Operator Name Role Phone JAILYN PÉREZ Unavailable Unavailable Problems This patient has no known problems. Allergies, Adverse Reactions, Alerts This patient has no known allergies or adverse reactions. Medications This patient has no known medications. Results Test Description Test Time Test Comments Text Results Atomic Results Result Comments CT ABDOMEN/PELVIS W 2018-12-02 08:30:00 [place] [address] Patient Name: JAVIER CHILDRESS MR #: [id number] : 1945 Age/Sex: 73/M Req #: [id number] [facility] Physician: JAILYN PÉREZ MD Ordered by: JAILYN PÉREZ MD Report #: [id number] Location: MED/SURG Room/Bed: [facility] Procedure: [id number] CT/CT ABDOMEN/PELVIS W Exam Date: 12/02/18 Exam Time: 0800 REPORT STATUS: Signed EXAM: CT Abdomen and Pelvis WITH contrast INDICATION: Anorectal abscess, cancer. COMPARISON: CT Abdomen/Pelvis with contrast 11/27/2018. TECHNIQUE: Abdomen and pelvis were scanned utilizing a multidetector helical scanner from the lung base to the pubic symphysis after administration of IV contrast. Coronal and sagittal reformations were obtained. Routine protocol was performed. Scan was performed when during portal venous phase. IV CONTRAST: 100 cc Isovue-370 ORAL CONTRAST: Water RADIATION DOSE: Total DLP: 764.65 mGy*cm Dose modulation, iterative reconstruction, and/or weight based adjustment of the mA/kV was utilized to reduce the radiation dose to as low as reasonably achievable. COMPLICATIONS: None FINDINGS: LINES and TUBES: None. LOWER THORAX: Coronary artery calcifications. Interval development of trace bilateral pleural effusions. Again noted are bilateral dependent tree-in-bud and nodular opacities, most pronounced in the lingula and left lower lobe, and to a lesser extent in the right middle and lower lobes. HEPATOBILIARY: Heterogeneous low attenuation of the hepatic parenchyma suggestive of steatosis. No focal hepatic lesions. No biliary ductal dilation. GALLBLADDER: The gallbladder is decompressed without evidence of wall thickening or stone. There is pericholecystic fluid. SPLEEN: No splenomegaly. PANCREAS: No focal masses or ductal dilatation. ADRENALS: No adrenal nodules KIDNEYS/URETERS: Kidneys enhance symmetrically. No hydronephrosis. No evidence of mass. There is a 5 mm nonobstructing calculus in left upper pole stone. GI TRACT: No abnormal distention, wall thickening, or evidence of bowel obstruction. Moderate to large volume of stool within the colon, as before. Interval decrease of stool within the rectum. The anorectal region is not well evaluated. There is mild stranding surrounding the distal rectum (series 2, image 79). Appendix is normal. PELVIC ORGANS/BLADDER: Status post prostatectomy. The bladder is partially decompressed. LYMPH NODES: No lymphadenopathy. VESSELS: There is moderate to extensive atherosclerotic disease in the aorta and branch vessels. There is stenosis at the origins of the celiac artery and SMA, although the degree of stenosis is difficult to quantify. Both vessels appear patent. PERITONEUM / RETROPERITONEUM: No free air or fluid. BONES/SOFT TISSUES: No acute osseous abnormality. No suspicious lytic or blastic lesions. Tiny umbilical hernia. IMPRESSION: The distal rectum a nd anus is not well evaluated on this study. There is mild stranding surrounding the distal rectum. This is of unclear etiology and may be post surgical or inflammatory. The reason for this study was reportedly for anorectal abscess/cancer. No definite abscess is visualized. If there is clinical concern for anorectal pathology, MRI is more sensitive for evaluation. Also suggest direct inspection for mass. Interval decrease in stool within the rectum. Dependent lower lung tree in bud opacities with interval development of trace bilateral pleural effusions, likely reflecting infectious process. Suggest follow-up chest CT in 3 months to assess for resolution. Decompressed gallbladder with pericholecystic fluid, likely reflecting volume status rather than cholecystitis. Diffuse hepatic steatosis. Signed by: Dr. Lexy Landry MD on 12/02/2018 8:48 AM Dictated By: LEXY LANDRY MD 7 Transcribed By: Gilda KING on 12/02/18847 COPY TO: JAILYN PÉREZ MD CT ABD/PEL WITH CONTRAST-HOPD 2018-11-28 00:40:00 [place] [address] Patient Name: JAVIER CHILDRESS MR #: [id number] : 1945 Age/Sex: 73/M Req #: [id number] Adm Physician: JAILYN PÉREZ MD Ordered by: RHONDA LOWERY MD Report #: [id number] Location: [facility] Room/Bed: [place] [address] Procedure: [id number] HOPD/CT ABD/PEL WITH CONTRAST-HOPD Exam Date: 11/28/18 Exam Time: 1145 REPORT STATUS: Signed EXAM: CT Abdomen and Pelvis WITH contrast IN DICATION: Pain. COMPARISON: None. TECHNIQUE: Abdomen and pelvis were scanned utilizing a multidetector helical scanner from the lung base to the pubic symphysis after administration of IV contrast. Coronal and sagittal reformations were obtained. Routine protocol was performed. Scan was performed when during portal venous phase. IV CONTRAST: 100 cc Isovue-370 ORAL CONTRAST: Water RADIATION DOSE: Total DLP: 822.08 mGy*cm Estimated effective dose: (DLP x 0.015 x size factor) mcv COMPLICATIONS: None FINDINGS: LINES and TUBES: None. LOWER THORAX: Coronary artery calcifications. Bibasilar reticular nodular densities particularly in the lingula with tree-in-bud pattern may be infectious or inflammatory in etiology. HEPATOBILIARY: Heterogeneous low attenuation of the hepatic parenchyma suggestive of steatosis. No focal hepatic lesions. No biliary ductal dilation. GALLBLADDER: No radio-op aque stones or sludge. No wall thickening. SPLEEN: No splenomegaly. PANCREAS: No focal masses or ductal dilatation. ADRENALS: No adrenal nodules KIDNEYS/URETERS: Kidneys enhance symmetrically. No hydronephrosis. No cystic or solid mass lesions. 4.7 mm nonobstructing calculus in the upper pole of the left kidney. GI TRACT: No abnormal distention, wall thickening, or evidence of bowel obstruction. Moderate to large volume of stool within the colon. Large volume of stool within the rectosigmoid. Appendix is normal. PELVIC ORGANS/BLADDER: Status post pro statectomy. LYMPH NODES: No lymphadenopathy. VESSELS: There is moderate atherosclerotic disease in the aorta and major arterial branches. Reflux of contrast into the intrahepatic IVC and hepatic veins may be related to right-sided failure versus PERITONEUM / RETROPERITONEUM: No free air or fluid. BONES: Median sternotomy wires. Multilevel Schmorl nodes. SOFT TISSUES: Tiny umbilical hernia containing a knuckle of small bowel loop. IMPRESSION: 1. Findings may reflect constipation with fecal impaction. 2. Nonobstructing left renal calculus. 3. Bibasilar reticular nodular opacities may be infectious or inflammatory in etiology; correlate clinically. Signed by: Dr. Dorene Mejia M.D. on 11/28/2018 12:49 AM Dictated By: REYNALDO MEJIA MD, MD Transcribed By: EDWIN on 11/28/1848 COPY TO: RHONDA LOWERY MD
[2019-06-09] MEDS ORDERED: POLYETHYLENE GLYCOL 3350 17 GM PACK PO SCH ×2 (09:00→18:00)
[2019-06-09] MEDS ORDERED: ASPIRIN 81 MG CHEW TAB PO STA (09:35)
[2019-06-09] MEDS ORDERED: SODIUM CHLORIDE 0.9% 1000ML 1,000 ML IV STA (09:35)
[2019-06-09] MEDS ORDERED: FAMOTIDINE 20 MG/2 ML VIAL IV STA (09:35)
[2019-06-09 09:46] LABS: BASOPHILS % 0.5 % (0.0-1.0); EOSINOPHILS # (AUTO) 0.1 (0.0-0.4); EOSINOPHILS % 1.6 % (0.0-6.0); HEMATOCRIT 38.6 % (38.2-49.6); HEMOGLOBIN 13.1 g/dL (14.0-18.0); LYMPHOCYTES # (AUTO) 1.4 (1.0-3.2); LYMPHOCYTES % 25.3 % (18.0-39.1); MEAN CORPUSCULAR HEMOGLOBIN 31.5 pg (28-32); MEAN CORPUSCULAR HGB CONC 33.9 g/dL (31-35); MEAN CORPUSCULAR VOLUME 92.8 fL (81-99); MONOCYTES # (AUTO) 0.4 (0.2-0.8); MONOCYTES % 6.9 % (4.4-11.3); NEUTROPHILS # (AUTO) 3.7 (2.1-6.9); NEUTROPHILS % 65.3 % (38.7-80.0); PLATELET COUNT 233 x10e3/uL (140-360); RED BLOOD COUNT 4.16 x10e6/uL (4.3-5.7); RED CELL DISTRIBUTION WIDTH 13.6 % (11.7-14.4)
[2019-06-09 09:51] LABS: INR 1.13; PARTIAL THROMBOPLASTIN TIME 34.4 seconds (23.8-35.5)
[2019-06-09] MEDS ORDERED: ONDANSETRON HCL INJ 2MG/ML 2ML 2 MG/ML VIAL IV PRN (10:00)
[2019-06-09] MEDS ORDERED: MORPHINE SULFATE 2 MG/ML SYR 1ML IV PRN (10:00)
[2019-06-09] MEDS ORDERED: SODIUM CHLORIDE FLUSH 10 ML SYR INJ PRN (10:00)
[2019-06-09] MEDS ORDERED: ASPIRIN 81 MG CHEW TAB PO ONE (10:00)
[2019-06-09 10:01] LABS: ALANINE AMINOTRANSFERASE 23 IU/L (0-55); ALBUMIN/GLOBULIN RATIO 0.7 (0.8-2.0); ALKALINE PHOSPHATASE 86 IU/L (40-150); ANION GAP 13.8 mmol/L (8-16); BLOOD UREA NITROGEN 16 mg/dL (7-26); BUN/CREATININE RATIO 15 (6-25); CALCIUM 8.5 mg/dL (8.4-10.2); CARBON DIOXIDE 24 mmol/L (22-29); CHLORIDE 103 mmol/L (98-107); CREATINE KINASE 74 IU/L (30-200); CREATININE, SERUM 1.08 mg/dL (0.72-1.25); EST GLOMERULAR FILTRATION RATE > 60 ML/MIN (60-); GLUCOSE 110 mg/dL (74-118); LIPASE 27 U/L (8-78); MAGNESIUM 1.8 MG/DL (1.3-2.1); POTASSIUM 3.8 mmol/L (3.5-5.1); SODIUM 137 mmol/L (136-145)
[2019-06-09 10:21] LABS: THYROID STIMULATING HORMONE 1.305 uIU/mL (0.350-4.940)
--- NOTE | 2019-06-09 10:25 | NUR ---
Derrick henriquez in EDM - 06/09/19 at 1028 by HODA pt transported approx 1015 am to room 207; after arrival sabas gage comes into room with ekg strips and tells nurse about long pauses and bradycardia noted on ekg during transport; nurse immediately speaks with dr hagan and dr nguyen in er at time
--- NOTE | 2019-06-09 10:46 | Diagnostic Imaging Report ---
EXAMINATION: CHEST SINGLE (PORTABLE) INDICATION: Chest pain COMPARISON: None FINDINGS: LINES/TUBES:EKG leads overlie the chest. LUNGS:The lungs are well-inflated. There is perihilar fullness and indistinctness of the pulmonary vasculature. PLEURA:No pleural effusion or pneumothorax. MEDIASTINUM:The cardiomediastinal silhouette is enlarged. Atherosclerotic calcifications of the thoracic aorta. Postoperative findings of prior CABG. BONES/SOFT TISSUES:No acute osseous injury. Sternotomy wires in place. ABDOMEN:No free air under the diaphragm. IMPRESSION: Cardiomegaly and mild pulmonary edema. Signed by: Kecia Tsang MD on 06/09/2019 10:43 AM
[2019-06-09 12:03] LABS: BILIRUBIN,URINE NEGATIVE (NEGATIVE); CLARITY,URINE CLEAR (CLEAR); COLOR,URINE YELLOW (YELLOW); KETONES,URINE NEGATIVE (NEGATIVE); LEUKOCYTE ESTERASE ,URINE NEGATIVE (NEGATIVE); NITRITE,URINE NEGATIVE (NEGATIVE); PROTEIN,URINE DIPSTICK NEGATIVE (NEGATIVE); URINE UROBILINOGEN 1 mg/dL (0.2 - 1)
[2019-06-09] MEDS ORDERED: FUROSEMIDE INJ 10 MG/ML 4 ML VIAL IV ONE (12:15)
[2019-06-09 12:16] LABS: BACTERIA,URINE FEW /HPF; EPITHELIAL CELLS,URINE FEW /LPF; WBC,URINE (MAN) 0-5 /HPF (0-5)
--- NOTE | 2019-06-09 12:35 | Diagnostic Imaging Report ---
EXAM: CT Chest WITH contrast- Pulmonary Embolism Protocol INDICATION: Shortness of breath, chest pain COMPARISON: Chest radiograph of the same day. TECHNIQUE: Chest was scanned utilizing a multidetector helical scanner from the lung apex through the level of the diaphragm after administration of IV contrast. Thin section reconstructions were obtained with special concentration on the pulmonary arteries. Coronal and sagittal reformations were obtained. Pulmonary embolism protocol was performed. IV CONTRAST: 100 cc of Isovue 370 RADIATION DOSE: Total DLP: 574.3 mGy*cm Dose modulation, iterative reconstruction, and/or weight based adjustment of the mA/kV was utilized to reduce the radiation dose to as low as reasonably achievable. COMPLICATIONS: None FINDINGS: LINES/ TUBES: None. PULMONARY ARTERIES: No filling defect is identified within the pulmonary arteries to the segmental level. The subsegmental pulmonary arteries are not well opacified. Main pulmonary artery measures 3.0 cm in diameter. LUNGS AND AIRWAYS: Small amount of mucus in the trachea and left main bronchus. There are multifocal consolidative opacities involving the dependent portion of the lingula and the majority of the left lower lobe. Bilateral lower lobe dependent smooth interlobular septal thickening is consistent with pulmonary edema. PLEURA: No pleural effusion or pneumothorax. HEART AND MEDIASTINUM: The thyroid gland is normal. No supraclavicular or mediastinal lymphadenopathy. Left hilar lymphadenopathy measuring up to 13 mm short axis (series 2 image 54). Multichamber cardiomegaly. Postoperative findings of prior CABG. No pericardial effusion. Diffuse atherosclerotic calcifications involve the coronary arteries, thoracic aorta and proximal great vessels.. No evidence of right heart strain. UPPER ABDOMEN: Limited images of the upper abdomen to menstruate no focal abnormality of the partially visualized liver, spleen, pancreas, or adrenals. The kidneys are not visualized. BONES: No acute fracture or dislocation. No suspicious lytic or blastic lesions. Mild degenerative changes of the visualized spine. SOFT TISSUES: Unremarkable. IMPRESSION: No pulmonary embolism. Consolidative opacities at the dependent lingula and majority of the left lower lobe consistent with aspiration and/or pneumonia. Cardiomegaly and pulmonary edema. Status post CABG. Diffuse atherosclerotic calcifications including of the coronary arteries. Signed by: Kecia Tsang MD on 06/09/2019 12:32 PM
--- NOTE | 2019-06-09 12:55 | NUR ---
RECEIVED PT FROM ER. JULIETA. EDUCATED PT ABOUT FALL PRECAUTIONS. BED IS LOW AND LOCKED. PT REFUSED BED ALARM. CALL LIGHT WITH IN EASY REACH. INSTRUCTED PT TO USE CALL LIGHT FOR ANY NEEDS. PT VERBALIZED UNDERSTANDING. PT DENIES NEEDS AT THIS TIME.
[2019-06-09 13:05] VITALS: BP 162/74
--- NOTE | 2019-06-09 13:20 | NUR ---
PAGED DR. NOBLE REGARDING THE PT MEDS AND IV FLUIDS.
[2019-06-09 13:30] VITALS: BP 162/74
--- NOTE | 2019-06-09 13:30 | NUR ---
PER THE TRANSFER REPORT BY ER NURSE, FOR MEDICATION RECONCILIATION, PT DOESN'T REMEMBER ANY MEDS AND UNABLE TO GIVE THE LIST OF MEDS. PER THE PT, SAME MEDS IN [facility] LAST TIME SHE WAS ADMITTED AT THE HOSPITAL.
[2019-06-09 14:00] VITALS: BP 162/74
[2019-06-09 15:21] VITALS: BP 146/76
[2019-06-09 15:28] LABS: CREATINE KINASE 79 IU/L (30-200)
[2019-06-09] MEDS ORDERED: ALBUTEROL/IPRATROPIUM 3 ML NEB NEB PRN (15:30)
[2019-06-09] MEDS ORDERED: NITROGLYCERIN 0.4 MG SUBL SL PRN (15:30)
[2019-06-09] MEDS ORDERED: GUAIFENESIN/CODEINE 10 ML CUP PO PRN (15:30)
[2019-06-09] MEDS ORDERED: ACETAMINOPHEN 325 MG TAB PO PRN (15:30)
[2019-06-09] MEDS ORDERED: IOPAMIDOL 370 MG/ML 200 ML INFUS..BTL INJ ONE (15:50)
[2019-06-09] MEDS ORDERED: SODIUM CHLORIDE 0.9% 50ML 50 ML ONE (15:50)
[2019-06-09] MEDS: GABAPENTIN 300 MG CAP PO SCH ×2 (16:00→20:28)
[2019-06-09] MEDS: MOMETASONE FUROATE INH SCH (16:04)
[2019-06-09] MEDS: METOPROLOL TARTRATE 25 MG TAB PO SCH (16:04)
[2019-06-09] MEDS: PIPER-TAZ 3.375 GM 50 ML IV SCH ×2 (16:04→23:08)
--- NOTE | 2019-06-09 18:15 | NUR ---
TRANSFER PT TO RM 175 OBS PER WET MACHINE CUTTER. PAGED DR. NOBLE AND INFORMED THE SAME. OKAY TO TRANSFER PT, PER DR. NOBLE. TRANSFER REPORT GIVEN TO CHARGE NURSE. INFORMED THE SAME TO PT AND FAMILY. PT DENIED FURTHER NEEDS.
--- NOTE | 2019-06-09 19:17 | NUR ---
received report from day nurse. patient is resting comfortably in bed. bed is in lowest position and call mason is within reach. will continue to monitor patient.
[2019-06-09 20:00] VITALS: BP 155/79
[2019-06-09] MEDS: MECLIZINE HCL 12.5 MG TAB PO SCH (20:28)
[2019-06-09] MEDS: ATORVASTATIN 40 MG TAB PO SCH (20:28)
[2019-06-09] MEDS ORDERED: SODIUM CHLORIDE 0.9% 250ML 250 ML ONE (23:02)
[2019-06-09 23:23] LABS: CREATINE KINASE 65 IU/L (30-200)
[2019-06-10] VITALS (8 sets, daily range): BP systolic 130–149; BP diastolic 59–76
[2019-06-10] MEDS: PIPER-TAZ 3.375 GM 50 ML IV SCH ×4 (05:01→23:55)
[2019-06-10 05:14] LABS: BASOPHILS % 0.4 % (0.0-1.0); EOSINOPHILS # (AUTO) 0.1 (0.0-0.4); EOSINOPHILS % 1.8 % (0.0-6.0); HEMATOCRIT 38.7 % (38.2-49.6); HEMOGLOBIN 13.2 g/dL (14.0-18.0); LYMPHOCYTES # (AUTO) 1.5 (1.0-3.2); LYMPHOCYTES % 26.5 % (18.0-39.1); MEAN CORPUSCULAR HEMOGLOBIN 31.4 pg (28-32); MEAN CORPUSCULAR HGB CONC 34.1 g/dL (31-35); MEAN CORPUSCULAR VOLUME 91.9 fL (81-99); MONOCYTES # (AUTO) 0.5 (0.2-0.8); MONOCYTES % 8.3 % (4.4-11.3); NEUTROPHILS # (AUTO) 3.5 (2.1-6.9); NEUTROPHILS % 62.8 % (38.7-80.0); PLATELET COUNT 239 x10e3/uL (140-360); RED BLOOD COUNT 4.21 x10e6/uL (4.3-5.7); RED CELL DISTRIBUTION WIDTH 13.6 % (11.7-14.4)
[2019-06-10 05:35] LABS: ALANINE AMINOTRANSFERASE 21 IU/L (0-55); ALBUMIN 2.8 g/dL (3.5-5.0); ALBUMIN/GLOBULIN RATIO 0.7 (0.8-2.0); ALKALINE PHOSPHATASE 65 IU/L (40-150); ANION GAP 13.9 mmol/L (8-16); BLOOD UREA NITROGEN 15 mg/dL (7-26); BUN/CREATININE RATIO 13 (6-25); CALCIUM 8.9 mg/dL (8.4-10.2); CARBON DIOXIDE 28 mmol/L (22-29); CHLORIDE 101 mmol/L (98-107); CHOL/HDL RATIO 3.3 (3.9-4.7); CHOLESTEROL 79 MD/DL (0-199); CREATININE, SERUM 1.16 mg/dL (0.72-1.25); EST GLOMERULAR FILTRATION RATE > 60 ML/MIN (60-); GLUCOSE 107 mg/dL (74-118); HDL CHOLESTEROL 24 MG/DL (40-60); LDL CHOLESTEROL 37 MG/DL (60-130); PHOSPHORUS 3.8 MG/DL (2.3-4.7); POTASSIUM 3.9 mmol/L (3.5-5.1); SODIUM 139 mmol/L (136-145); TRIGLYCERIDES 91 MG/DL (0-149)
--- NOTE | 2019-06-10 06:50 | NUR ---
Received patient lying in bed with eyes closed. Respiration even and unlabored without SOB. Call light in reach.
--- NOTE | 2019-06-10 07:10 | NUR ---
Report given to day nurse. patient is resting comfortably in bed. bed is in lowest position and call mason is within reach.
[2019-06-10] MEDS: PANTOPRAZOLE SOD 40 MG TABEC PO SCH (08:42)
[2019-06-10] MEDS: MOMETASONE FUROATE INH SCH ×2 (08:43→14:12)
[2019-06-10] MEDS: LUBIPROSTONE 24 MCG CAP PO SCH (08:43)
[2019-06-10] MEDS: AMLODIPINE BESYLATE 5 MG TAB PO SCH (08:44)
[2019-06-10] MEDS: ASPIRIN 81 MG ENTERIC COATED PO SCH (08:44)
[2019-06-10] MEDS: MECLIZINE HCL 12.5 MG TAB PO SCH ×3 (08:44→20:58)
[2019-06-10] MEDS: METOPROLOL TARTRATE 25 MG TAB PO SCH ×2 (08:44→16:39)
[2019-06-10] MEDS: DOCUSATE SODIUM 100 MG CAP PO SCH (08:44)
[2019-06-10] MEDS: GABAPENTIN 300 MG CAP PO SCH ×3 (08:44→20:58)
[2019-06-10] MEDS: POLYETHYLENE GLYCOL 3350 17 GM PACK PO SCH (08:44)
[2019-06-10] MEDS: SENNOSIDES 8.6 MG TAB PO SCH (08:45)
[2019-06-10] MEDS ORDERED: ASPIRIN 81 MG ENTERIC COATED PO SCH (09:00)
[2019-06-10] MEDS: TIOTROPIUM 18 MCG INH POWDER INH SCH (09:09)
--- NOTE | 2019-06-10 13:36 | History and Physical ---
CHIEF COMPLAINT: Increasing coughing and shortness of breath and chest pain. HISTORY OF PRESENT ILLNESS: The patient is a 73-year-old male with coronary artery disease with previous coronary artery bypass graft surgery. The patient also is obese. He also had multiple other medical problems including hypertension and reflux. He came in with off and on for the past 3 weeks increasing shortness of breath, cough, and fever. The patient failed outpatient treatment. He came in and CT of the chest showed that the patient had multilobar pneumonia. The patient is admitted for antibiotics treatment and also with home medication along with further cardiac workup with consultation of Cardiology. PAST MEDICAL HISTORY: Coronary artery disease with previous coronary artery bypass graft surgery, morbid obesity, hypertension, dyslipidemia, reflux history, and COPD. PAST SURGICAL HISTORY: Coronary artery bypass graft surgery in 2017. He had possible multiple stents, but history unreliable. ALLERGIES: TO NO KNOWN ALLERGIES. HOME MEDICATIONS: List reviewed. REVIEW OF SYSTEMS: Increasing shortness of breath, cough, and chest pain. PHYSICAL EXAMINATION: VITAL SIGNS: Temperature is 98, blood pressure 142/59. HEENT: Normocephalic and atraumatic. Pupils reactive. Anicteric. NECK: Supple grossly. PULMONARY: Diminished breath sounds bilaterally with coarses at the bases. CARDIOVASCULAR: S1 and S2. Regular rate and rhythm. ABDOMEN: Soft and obese. EXTREMITIES: Trace to 1+ edema bilaterally. NEUROLOGIC: No gross focal deficit. Moving all extremities. LABORATORY DATA: Sodium is 139, potassium 3.9, chloride 101, bicarb 28, BUN 15, creatinine 1.2, and glucose 107. WBC is 5.5, hemoglobin 13.2, hematocrit 38.7, and platelets is 299. CT scan showed multilobar pneumonia and congestive heart failure. IMPRESSION: 1. Iosfn-nm-kakcele systolic dysfunction congestive heart failure with coronary artery disease with previous bypass graft surgery. 2. Multilobar pneumonia. 3. Morbid obesity. 4. Multiple baseline problems. PLAN: IV antibiotics. Echocardiogram. Continue with some home medication. We will follow up on cardiac workup. In the meantime, continue with treatment. We will follow up closely at this time. The patient will be admitted for treatment. MD FRANCISCO Juarez/CRISSY /[id number]
--- NOTE | 2019-06-10 17:16 | Consultation ---
DATE OF CONSULTATION: 06/10/2019 Cardiology Consultation Note Thank you so much for asking me to see this nice man again in consultation. CHIEF COMPLAINT: The patient tells me that he has moved back from [place] about 3 weeks ago. He felt that he had some substernal burning or "indigestion" while he was on the train, which is similar to what he had before his myocardial infarction in 2017. He reports he has also had a cough for about the last 2 weeks. PAST MEDICAL HISTORY: Significant for previous hospitalization at [facility] November 28, 2018, when the patient had perirectal abscess, had surgery. He had previous myocardial infarction and requiring coronary artery bypass graft surgery at the [facility] in July 2017. HOME MEDICATIONS: Currently include amlodipine 5 mg daily, aspirin 81 mg daily, Atorvastatin 80 mg daily, Colace 100 mg daily, gabapentin 300 mg t.i.d., Amitiza 24 mcg daily, meclizine p.r.n., metoprolol tartrate 25 mg b.i.d., mometasone furoate 2 inhalers twice a day, nitroglycerin sublingual p.r.n., pantoprazole 40 mg daily, MiraLAX daily, sennosides daily, and Spiriva inhaler. PERSONAL AND SOCIAL HISTORY: He tells me he stopped smoking at the time of coronary bypass graft surgery. 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 PHYSICAL EXAMINATION: GENERAL: At this time shows a large obese black man, who is 5 feet 8 inches tall, weighing 230 pounds. VITAL SIGNS: Blood pressure 130/70. HEAD, EYES, EARS, NOSE, AND THROAT: Unremarkable. NECK: No jugular venous distention. THORAX: There is healed midline sternotomy. Heart sounds S1 and S2 are equal and regular. No distinct murmur. ABDOMEN: Normal bowel sounds. EXTREMITIES: No cyanosis, clubbing, or edema. LABORATORY DATA: EKG shows atrial flutter. BNP is 236. Albumin is low at 2.8 with lowest normal being 3.5. Total cholesterol 79, HDL 24, and LDL 37. Troponins negative x3. Chest x-ray suggests left lower lobe infiltrate. ASSESSMENT: 1. Pneumonia. 2. Congestive heart failure. 3. Coronary artery disease possibly with recurrent angina. 4. Atrial flutter, timing not clear. PLAN: Agree with antibiotics and bronchodilators and we will monitor him. Previous echo in November showed EF 30% to 35%. We will plan Cardiolite if he remains otherwise stable to reassess possible recurrent angina. Thank you for asking me to see him in consultation. MD CHAGO Starkey/CRISSY /[id number]
--- NOTE | 2019-06-10 18:05 | NUR ---
transported patient to room 107. All personal belongings are taken with cart. Daughter is with the patient. Respiration even and unlabored without SOB.
--- NOTE | 2019-06-10 18:50 | NUR ---
Report given to Angelica, Patient is moving to room 107.
[2019-06-10] MEDS: ATORVASTATIN 40 MG TAB PO SCH (20:58)
[2019-06-10] MEDS ORDERED: SODIUM CHLORIDE 0.9% 250ML 250 ML ONE (23:49)
[2019-06-11] VITALS (7 sets, daily range): BP systolic 121–161; BP diastolic 62–79
[2019-06-11] MEDS: PIPER-TAZ 3.375 GM 50 ML IV SCH ×3 (06:38→17:21)
--- NOTE | 2019-06-11 07:00 | NUR ---
RECEIVED PATIENT RESTING IN BED NO S/S OF DISTRESS. BED LOW, WHEELS LOCKED, SIDE RAILS X2. CALL LIGHT IN REACH WILL CONTINUE TO MONITOR PATIENT.
[2019-06-11] MEDS: MOMETASONE FUROATE INH SCH ×2 (08:02→15:46)
[2019-06-11] MEDS: GABAPENTIN 300 MG CAP PO SCH ×3 (08:10→20:10)
[2019-06-11] MEDS: MECLIZINE HCL 12.5 MG TAB PO SCH ×3 (08:10→20:10)
[2019-06-11] MEDS: TIOTROPIUM 18 MCG INH POWDER INH SCH (08:30)
[2019-06-11] MEDS: POLYETHYLENE GLYCOL 3350 17 GM PACK PO SCH (09:00)
[2019-06-11] MEDS: SENNOSIDES 8.6 MG TAB PO SCH (09:00)
[2019-06-11] MEDS: LUBIPROSTONE 24 MCG CAP PO SCH (09:00)
[2019-06-11] MEDS: METOPROLOL TARTRATE 25 MG TAB PO SCH ×2 (09:00→17:21)
[2019-06-11] MEDS: DOCUSATE SODIUM 100 MG CAP PO SCH (09:00)
[2019-06-11] MEDS ORDERED: REGADENOSON 0.4 MG/5 ML SYR IV ONE (09:37)
--- NOTE | 2019-06-11 09:45 | NUR ---
PATIENT A/O X3, EVEN RESPIRATIONS ON RA. TELEMETRY #26 A FLUTTER. NO CHEST PAIN AT THIS TIME. RIGHT AC 20 GAUGE IV SL. PATIENT NPO FOR STRESS TEST TODAY. PATIENT AMBULATES INDEPENDENTLY. CALL LIGHT IN REACH WILL CONTINUE TO MONITOR PATIENT.
[2019-06-11] MEDS: PANTOPRAZOLE SOD 40 MG TABEC PO SCH (15:45)
[2019-06-11] MEDS: ASPIRIN 81 MG ENTERIC COATED PO SCH (15:45)
[2019-06-11] MEDS: AMLODIPINE BESYLATE 5 MG TAB PO SCH (15:45)
--- NOTE | 2019-06-11 16:52 | Myoview Stress Test ---
DATE OF STUDY: 06/11/2019 10:00:00 Stress Test - Treadmill ONLY STUDY: Lexiscan Myoview. FINDINGS: The patient had resting perfusion images after injection of 11 mCi of technetium-99m Myoview. Later due to inability to exercise, he was given Lexiscan 0.4 mg intravenously and shortly afterwards 33 mCi of technetium-99m Myoview. Perfusion images were taken by rotational tomography. Comparison of resting and Lexiscan stress images shows what may be a fixed proximal septal defect versus the membranous ventricular septum. There are no other fixed or reversible defects to suggest any scarring or ischemia. Additionally, gated wall motion images are obtained. There is mild global hypokinesis and calculated ejection fraction of 48%. FINAL IMPRESSION: 1. Borderline Lexiscan Myoview for perfusion. 2. Proximal defect may represent a scar, perhaps from perfusion, difficulty during coronary artery bypass graft surgery versus primarily the proximal membranous ventricular septum. 3. No other scar nor ischemia detected. 4. Mild global hypokinesis, calculated ejection fraction 48%. MD CHAGO Starkey/MODL /[id number] cc: Nikita Pisano MD
[2019-06-11] MEDS: ATORVASTATIN 40 MG TAB PO SCH (20:10)
[2019-06-12] VITALS (7 sets, daily range): BP systolic 114–149; BP diastolic 57–85
[2019-06-12] MEDS: PIPER-TAZ 3.375 GM 50 ML IV SCH ×4 (00:20→22:00)
[2019-06-12 06:16] LABS: BASOPHILS % 0.5 % (0.0-1.0); EOSINOPHILS # (AUTO) 0.1 (0.0-0.4); HEMATOCRIT 42.1 % (38.2-49.6); LYMPHOCYTES # (AUTO) 2.1 (1.0-3.2); MEAN CORPUSCULAR HEMOGLOBIN 31.5 pg (28-32); MEAN CORPUSCULAR HGB CONC 33.3 g/dL (31-35); MEAN CORPUSCULAR VOLUME 94.6 fL (81-99); MONOCYTES # (AUTO) 0.5 (0.2-0.8); MONOCYTES % 7.8 % (4.4-11.3); NEUTROPHILS # (AUTO) 3.2 (2.1-6.9); NEUTROPHILS % 54.2 % (38.7-80.0); PLATELET COUNT 281 x10e3/uL (140-360); RED BLOOD COUNT 4.45 x10e6/uL (4.3-5.7)
[2019-06-12 06:34] LABS: BLOOD UREA NITROGEN 14 mg/dL (7-26); BUN/CREATININE RATIO 12 (6-25); CALCIUM 8.8 mg/dL (8.4-10.2); CARBON DIOXIDE 22 mmol/L (22-29); CHLORIDE 107 mmol/L (98-107); CREATININE, SERUM 1.17 mg/dL (0.72-1.25); EST GLOMERULAR FILTRATION RATE > 60 ML/MIN (60-); GLUCOSE 102 mg/dL (74-118); SODIUM 139 mmol/L (136-145)
--- NOTE | 2019-06-12 07:00 | NUR ---
BEDSIDE ROUNDS COMPLETE NO DISTRESS NOTED,UPDATED ON POC VOICED UNDERSTANDING,20G R AC NO SS OF INFILTRATION NOTED, DENIES PAIN AT THIS TIME, CALL LIGHT IN REACH WILL CONTINUE TO MONITOR
--- NOTE | 2019-06-12 07:16 | NUR ---
REPORT GIVEN TO ONCOMING NURSE.WALKING ROUNDS MADE.PT RESTING IN BED WITH NO S/S OF DISTRESS.
[2019-06-12] MEDS: ALBUTEROL/IPRATROPIUM 3 ML NEB NEB SCH ×3 (07:30→19:00)
[2019-06-12] MEDS: ACETYLCYSTEINE 20% INHAL SOLN 30 ML VIAL INH SCH ×2 (08:00→19:00)
[2019-06-12] MEDS: DOXYCYCLINE 100MG/NS 100ML 100 ML IV SCH ×2 (08:56→20:30)
[2019-06-12] MEDS: METHYLPREDNISOLONE SOD SUCC 40 MG/ML VIAL 1ML IV SCH ×2 (08:56→20:30)
[2019-06-12] MEDS: PANTOPRAZOLE SOD 40 MG TABEC PO SCH (08:56)
[2019-06-12] MEDS: MECLIZINE HCL 12.5 MG TAB PO SCH ×3 (08:57→20:30)
[2019-06-12] MEDS: ASPIRIN 81 MG ENTERIC COATED PO SCH (08:57)
[2019-06-12] MEDS: LUBIPROSTONE 24 MCG CAP PO SCH (08:57)
[2019-06-12] MEDS: DOCUSATE SODIUM 100 MG CAP PO SCH (08:58)
[2019-06-12] MEDS: GABAPENTIN 300 MG CAP PO SCH ×3 (08:59→20:30)
[2019-06-12] MEDS: METOPROLOL TARTRATE 25 MG TAB PO SCH ×2 (08:59→16:43)
[2019-06-12] MEDS: SENNOSIDES 8.6 MG TAB PO SCH (09:00)
[2019-06-12] MEDS: AMLODIPINE BESYLATE 5 MG TAB PO SCH (09:00)
[2019-06-12] MEDS: POLYETHYLENE GLYCOL 3350 17 GM PACK PO SCH (09:01)
[2019-06-12] MEDS ORDERED: ONDANSETRON HCL 4 MG ORAL DISINTEGRATING TAB PO PRN (12:15)
[2019-06-12] MEDS: ATORVASTATIN 40 MG TAB PO SCH (20:30)
--- NOTE | 2019-06-12 20:30 | NUR ---
PT RESTING IN BED WITH NO S/S OF DISTRESS.RESPIRATIONS EVEN/NON LABORED.DENIES ANY PAIN/DISCOMFORT.MEDICATIONS GIVEN PER MAR.SNACKS GIVEN TO PT.PT'S DAUGHTER AND FAMILY MEMBER AT BEDSIDE.BED IN LOWEST/LOCKED POSITION.CALL LIGHT WITHIN EASY REACH.
[2019-06-13 00:04] VITALS: BP 142/82
[2019-06-13] MEDS: ALBUTEROL/IPRATROPIUM 3 ML NEB NEB SCH ×2 (01:50→06:40)
[2019-06-13 04:29] VITALS: BP 114/58
[2019-06-13] MEDS: PIPER-TAZ 3.375 GM 50 ML IV SCH (06:18)
[2019-06-13] MEDS: ACETYLCYSTEINE 20% INHAL SOLN 30 ML VIAL INH SCH (06:40)
[2019-06-13 08:01] VITALS: BP 133/62
[2019-06-13] MEDS: PANTOPRAZOLE SOD 40 MG TABEC PO SCH (08:15)
--- NOTE | 2019-06-13 09:59 | NUR ---
PT ASKED TO RETURN WHEN HIS FAMILY IS HERE
[2019-06-13] MEDS: LUBIPROSTONE 24 MCG CAP PO SCH (10:10)
[2019-06-13] MEDS: MECLIZINE HCL 12.5 MG TAB PO SCH (10:11)
[2019-06-13] MEDS: ASPIRIN 81 MG ENTERIC COATED PO SCH (10:11)
[2019-06-13] MEDS: DOCUSATE SODIUM 100 MG CAP PO SCH (10:11)
[2019-06-13] MEDS: AMLODIPINE BESYLATE 5 MG TAB PO SCH (10:12)
[2019-06-13] MEDS: SENNOSIDES 8.6 MG TAB PO SCH (10:12)
[2019-06-13] MEDS: GABAPENTIN 300 MG CAP PO SCH (10:12)
[2019-06-13] MEDS: DOXYCYCLINE 100MG/NS 100ML 100 ML IV SCH (10:13)
[2019-06-13] MEDS: POLYETHYLENE GLYCOL 3350 17 GM PACK PO SCH (10:13)
[2019-06-13] MEDS: METHYLPREDNISOLONE SOD SUCC 40 MG/ML VIAL 1ML IV SCH (10:13)
[2019-06-13] MEDS: METOPROLOL TARTRATE 25 MG TAB PO SCH (10:13)
[2019-06-13 10:37] VITALS: BP 133/62
[2019-06-13 12:16] VITALS: BP 145/65
[2019-06-13] MEDS ORDERED: LASIX40 MG PO (14:49)
[2019-06-13] MEDS ORDERED: K-TAB10 MEQ PO (14:49)
--- NOTE | 2019-06-15 04:34 | Discharge Summary ---
REMOTE ENCODING OPERATIONS SUPERVISOR: Jose Luis M.D. FINAL DIAGNOSES: 1. Bibasilar pneumonia, community acquired. Possible aspiration pneumonia. Difficult to confirm at this time. 2. Compensated systolic dysfunction, congestive heart failure, chronic. 3. Chest pain, status post Cardiolite stress test, no acute ischemia. 4. Baseline coronary artery disease with previous coronary artery bypass graft surgery. 5. Baseline ex-smoker, quit approximately 1 year ago, hypertension, dyslipidemia, and obesity. SUMMARY: A 73-year-old male came in with increasing shortness of breath and cough, productive. Echocardiogram showed ejection fraction 30% to 35%. CT of the chest, however, showed pneumonia, no vascular congestion. At baseline, the patient on multiple medications for his coronary artery disease. He does have episodes of atrial flutter. However, heart rate controlled at rate 70. The patient is otherwise stable. Cough has now resolved. The patient is already on antibiotics prior to his admission here, he was on Levaquin and Flagyl, which he will continue. The patient is otherwise stable. He will go home today. COPD, where he was on steroids and no need for steroids at this time, the patient is not wheezing. He is comfortable. He will go home and follow up with myself, we will repeat CT scan hopefully in approximately 4 weeks to document resolution of the infiltrate since the patient is ex-smoker. He need to follow up with Dr. Jose Luis for his medication adjustment and monitoring of atrial flutter. The patient is otherwise stable. 1. Resume home medication, previous antibiotics. 2. Lasix 40 mg once a day and potassium 10 mEq daily. 3. Followup as instructed. MD FRANCISCO Juarez/CRISSY /[id number]
== END 2019-06-13 15:48 | disposition home or self-care (01) | DRG 178 ==
LOC: ER 08:57 → ERHOLD 09:56 → MED/SURG2 12:37 → IMCU 18:25 → OBSVTOIN 06-10 14:54 → MED/SURG 06-10 18:56
PROVIDERS: ADMIT Internal Medicine; ATTEND Internal Medicine
DX: J69.0 Pneumonitis due to inhalation of food and vomit (principal); I48.92 Unspecified atrial flutter; I50.22 Chronic systolic (congestive) heart failure; J18.1 Lobar pneumonia, unspecified organism; Z95.1 Presence of aortocoronary bypass graft; Z87.891 Personal history of nicotine dependence; E78.5 Hyperlipidemia, unspecified; J44.9 Chronic obstructive pulmonary disease, unspecified; I11.0 Hypertensive heart disease with heart failure; I25.119 Atherosclerotic heart disease of native coronary artery with unspecified angina pectoris; Z79.01 Long term (current) use of anticoagulants; E66.01 Morbid (severe) obesity due to excess calories; Z68.37 Body mass index [BMI] 37.0-37.9, adult; I25.2 Old myocardial infarction
CPT/HCPCS: 36415; 71045; 71260; 78452; 80048; 80053; 80061; 81001; 82550; 82553; 83690; 83735; 83880; 84100; 84443; 84484; 85025; 85610; 85730; 87040; 93005; 93017; 93306; 94640; 94664; 99284; A9502; G0378; J1940; J2543; J2920; J7030; J7050; Q9967

== ENCOUNTER 2019-06-26 20:04 | Inpatient (IN) | payer MEDICARE ==
[~2019-06-26] VITALS: Ht 172.7 cm; Wt 106.6 kg
[~2019-06-26 20:04] MED LIST changes: +K-TAB10 MEQ PO; +LASIX40 MG PO
--- NOTE | 2019-06-26 22:21 | Diagnostic Imaging Report ---
EXAMINATION: CXR 1 W - HOP INDICATION: Chest pain COMPARISON: Chest radiograph and CT 06/09/2019 FINDINGS: TUBES and LINES: None. LUNGS: Lungs are well inflated. Right lung clear. Prominent pulmonary vasculature. Hazy left lower lobe retrocardiac opacity obscures the left hemidiaphragm. PLEURA: No pleural effusion or pneumothorax. HEART AND MEDIASTINUM: The cardiomediastinal silhouette is mildly enlarged. Post surgical changes along the left mediastinum. Aortic arch calcifications.. BONES AND SOFT TISSUES: No acute osseous lesion. Left carotid calcifications. Sternotomy wires. Degenerative changes in the spine and shoulders. UPPER ABDOMEN: No free air under the diaphragm. IMPRESSION: Mild cardiomegaly and pulmonary vascular congestion. Hazy left lower lobar opacity consistent with pneumonia, as seen on chest CT 06/09/2019. Signed by: Trey Luna DO on 06/26/2019 10:18 PM
[2019-06-26] MEDS ORDERED: PIPER-TAZ 3.375 GM 50 ML IV ONE (22:45)
[2019-06-26] MEDS ORDERED: ASPIRIN 325 MG TAB PO ONE (22:45)
[2019-06-26] MEDS ORDERED: ASPIRIN 81 MG CHEW TAB PO ONE (22:45)
--- NOTE | 2019-06-26 22:56 | NUR ---
[facility] NOTIFIED OF TRANSFER, ETA APPROX 30 MINUTES
[2019-06-27] VITALS (10 sets, daily range): BP systolic 117–167; BP diastolic 56–76
--- NOTE | 2019-06-27 00:35 | NUR ---
Received patient from the Emergency Room via EMS. Alert and oriented. Assisted to bed. Orientation to room done. Call light within reach. Patient wants to received flu vaccine in the morning. Patient refused bed alarm. He doesn't like the sound. IV to left hand with 20G needle intact. Call light within reach and encouraged to use.
[2019-06-27] MEDS ORDERED: ELIQUIS2.5 MG PO (02:18)
[2019-06-27] MEDS ORDERED: SODIUM CHLORIDE 0.9% 250ML 250 ML ONE (04:36)
[2019-06-27 05:09] LABS: BASOPHILS % 0.5 % (0.0-1.0); EOSINOPHILS # (AUTO) 0.1 (0.0-0.4); HEMATOCRIT 37.7 % (38.2-49.6); HEMOGLOBIN 12.8 g/dL (14.0-18.0); LYMPHOCYTES # (AUTO) 1.5 (1.0-3.2); LYMPHOCYTES % 24.3 % (18.0-39.1); MEAN CORPUSCULAR HEMOGLOBIN 31.4 pg (28-32); MEAN CORPUSCULAR VOLUME 92.4 fL (81-99); MONOCYTES # (AUTO) 0.6 (0.2-0.8); MONOCYTES % 9.2 % (4.4-11.3); NEUTROPHILS # (AUTO) 3.9 (2.1-6.9); NEUTROPHILS % 63.7 % (38.7-80.0); PLATELET COUNT 158 x10e3/uL (140-360); RED BLOOD COUNT 4.08 x10e6/uL (4.3-5.7); RED CELL DISTRIBUTION WIDTH 14.3 % (11.7-14.4)
[2019-06-27] MEDS: PIPER-TAZ 3.375 GM 50 ML IV SCH ×4 (05:18→16:59)
[2019-06-27 05:34] LABS: ANION GAP 13.4 mmol/L (8-16); BLOOD UREA NITROGEN 18 mg/dL (7-26); BUN/CREATININE RATIO 16 (6-25); CALCIUM 8.5 mg/dL (8.4-10.2); CARBON DIOXIDE 24 mmol/L (22-29); CHLORIDE 104 mmol/L (98-107); CREATININE, SERUM 1.15 mg/dL (0.72-1.25); EST GLOMERULAR FILTRATION RATE > 60 ML/MIN (60-); GLUCOSE 121 mg/dL (74-118); POTASSIUM 3.4 mmol/L (3.5-5.1); SODIUM 138 mmol/L (136-145)
--- NOTE | 2019-06-27 07:00 | NUR ---
received change of shift report, walking rounds completed; pt awake, alert, no signs of distress, will continue to monitor.
[2019-06-27] MEDS: ASPIRIN 325 MG TAB PO SCH (08:21)
[2019-06-27] MEDS ORDERED: INFLUENZA VIRUS VAC SPLIT INJ 0.5 ML SYR IM ONE (09:00)
[2019-06-27] MEDS ORDERED: POTASSIUM CHLORIDE 10MEQ EA PO ONE (15:15)
[2019-06-27 15:18] LABS: CREATINE KINASE MB 1.1 ng/mL (0-5.0)
[2019-06-27] MEDS: APIXAB 2.5 MG TABLET PO SCH (15:56)
[2019-06-27] MEDS: GABAPENTIN 300 MG CAP PO SCH ×2 (15:56→21:00)
[2019-06-27] MEDS ORDERED: ALBUTEROL SULF 0.083% NEB SOLN 3 ML NEB NEB PRN (16:00)
[2019-06-27] MEDS ORDERED: METHYLPREDNISOLONE SOD SUCC 40 MG/ML VIAL 1ML IV ONE (17:00)
[2019-06-27] MEDS ORDERED: FUROSEMIDE INJ 10 MG/ML 4 ML VIAL IV ONE (17:00)
--- NOTE | 2019-06-27 18:12 | NUR ---
spoke with Dr Luis regarding new consult for this pt. Dr Luis ordered an EKG and will see pt in the AM.
[2019-06-27] MEDS: ALBUTEROL/IPRATROPIUM 3 ML NEB NEB SCH (19:05)
--- NOTE | 2019-06-27 19:07 | NUR ---
walking rounds completed, change of shift report given to oncoming nightshift RN. pt in stable condition.
--- NOTE | 2019-06-27 19:10 | NUR ---
Completed bedside report with morning nurse. Pt alert and orient to name. Lying in bed supine HOB 45 degrees. Denies pain at this time. Call light within reach. Bed low and locked.
--- NOTE | 2019-06-27 19:42 | Consultation ---
DATE OF CONSULTATION: Pulmonary Critical Care Consultation CHIEF COMPLAINT: Congestion and dyspnea. HISTORY OF PRESENT ILLNESS: The patient is a 73-year-old man. He has a history of 2 prior myocardial infarctions in the past and a coronary artery bypass in 2016. He also has hypertension and atrial fibrillation and is taking Eliquis at home as well as metoprolol and low-dose diuretics. He was hospitalized at [facility] several weeks ago with dyspnea and congestion. A CT scan at that time showed a possible lower lobe infiltrate consistent with pneumonia. He received antibiotics. He also underwent a cardiac evaluation. His stress test at that time was normal, but his BNP was mildly elevated and his echocardiogram showed a mildly reduced ejection fraction. Although he was feeling better when he left the hospital. He now complains of recurrent dyspnea and congestion. He notes a cough productive of some phlegm. He does not complain of fevers or chest pain. He has increased dyspnea. PAST SURGICAL HISTORY: 1. Status post coronary bypass grafting in 2016. 2. Status post prior stents. PAST MEDICAL HISTORY: 1. Chronic systolic congestive heart failure. 2. Gastroesophageal reflux. 3. Hypertension. 4. Atrial fibrillation. SOCIAL HISTORY: The patient quit smoking 5 or 6 years ago. He has not been drinking for least 5 or 10 years. FAMILY HISTORY: Family history is noncontributory. ALLERGIES: THERE ARE NO KNOWN DRUG ALLERGIES. REVIEW OF SYSTEMS: He has no fever. There is no headache. He has no neck pain. He did not complain of any chest pain. He did note some congestion and cough. He has some phlegm production. He also notes some dyspnea. He does not have any abdominal pain. He has had some acid reflux in the past. He is not complaining of coughing or choking with eating. He denies any focal neurological complaints. PHYSICAL EXAMINATION: VITAL SIGNS: The patient is afebrile. The blood pressure is 128/58 and the pulse is 62. Saturation is 99% on room air. HEENT: Shows no facial swelling or erythema. CARDIAC: Reveals an irregularly irregular rhythm with normal S1 and S2. There are no murmurs or rubs. LUNGS: Auscultation of the lungs reveals rhonchorous breath sounds bilaterally. There is some wheezing. ABDOMEN: Soft, nontender. There is no rebound or guarding. EXTREMITIES: Shows no leg edema or calf tenderness. There is no cyanosis or clubbing. NEUROLOGICAL: Shows no focal abnormalities. RADIOGRAPHIC DATA: Chest x-ray shows cardiomegaly with mild pulmonary vascular congestion. There is a hazy left lower lobe infiltrate similar to the CT from several weeks ago. LABORATORY DATA: BUN to creatinine ratio is 16 to 1.08. The other electrolytes are within normal limits. Brain natriuretic peptide is 236.2. The albumin is 3. White blood cell count is 6 and the hemoglobin is 12.8. The platelet count is 158. IMPRESSION: 1. Acute on chronic systolic congestive heart failure. 2. Chronic obstructive pulmonary disease with acute exacerbation. 3. Atrial fibrillation. 4. Gastroesophageal reflux. 5. Hypertension. PLAN: 1. The patient will receive some diuretics. 2. Continue metoprolol and Eliquis. 3. Low-dose Solu-Medrol. 4. Bronchodilators. 5. Treat underlying gastroesophageal reflux. 6. Swallowing evaluation. 7. Continue current antibiotics. Jaron Rodas MD [facility] /[id number]
[2019-06-28] VITALS (7 sets, daily range): BP systolic 128–151; BP diastolic 58–65
[2019-06-28] MEDS: ALBUTEROL/IPRATROPIUM 3 ML NEB NEB SCH ×4 (00:05→19:42)
--- NOTE | 2019-06-28 01:14 | NUR ---
Spoke with Naomy MUSTAFA. Pt HR 130, ordered x1 dose Metoprolol 150mg. Pt c/o burning sensation in chest. RR even and unlabored. Denies pain radiating. O2 sat 94% RA.
[2019-06-28] MEDS ORDERED: METOPROLOL TARTRATE 50 MG TAB PO ONE (01:15)
[2019-06-28] MEDS: PIPER-TAZ 3.375 GM 50 ML IV SCH ×5 (06:00→23:50)
[2019-06-28 06:38] LABS: BASOPHILS % 0.1 % (0.0-1.0); HEMATOCRIT 40.2 % (38.2-49.6); HEMOGLOBIN 13.7 g/dL (14.0-18.0); LYMPHOCYTES # (AUTO) 0.9 (1.0-3.2); LYMPHOCYTES % 12.2 % (18.0-39.1); MEAN CORPUSCULAR HEMOGLOBIN 31.5 pg (28-32); MEAN CORPUSCULAR HGB CONC 34.1 g/dL (31-35); MEAN CORPUSCULAR VOLUME 92.4 fL (81-99); MONOCYTES # (AUTO) 0.4 (0.2-0.8); MONOCYTES % 5.5 % (4.4-11.3); NEUTROPHILS % 81.8 % (38.7-80.0); PLATELET COUNT 168 x10e3/uL (140-360); RED BLOOD COUNT 4.35 x10e6/uL (4.3-5.7); RED CELL DISTRIBUTION WIDTH 13.8 % (11.7-14.4)
[2019-06-28 07:05] LABS: ALANINE AMINOTRANSFERASE 19 IU/L (0-55); ALBUMIN 3.1 g/dL (3.5-5.0); ALBUMIN/GLOBULIN RATIO 0.7 (0.8-2.0); ALKALINE PHOSPHATASE 81 IU/L (40-150); ANION GAP 14.7 mmol/L (8-16); BLOOD UREA NITROGEN 18 mg/dL (7-26); BUN/CREATININE RATIO 17 (6-25); CALCIUM 8.9 mg/dL (8.4-10.2); CARBON DIOXIDE 25 mmol/L (22-29); CHLORIDE 101 mmol/L (98-107); CREATININE, SERUM 1.06 mg/dL (0.72-1.25); EST GLOMERULAR FILTRATION RATE > 60 ML/MIN (60-); GLUCOSE 159 mg/dL (74-118); POTASSIUM 3.7 mmol/L (3.5-5.1); SODIUM 137 mmol/L (136-145)
--- NOTE | 2019-06-28 07:15 | NUR ---
received shift change report from police shift commander RN, walking rounds completed, pt awake, alert, no signs of distress, oriented X3. no complaints at this time. HR 68 on quality assurance monitor chassis.
[2019-06-28] MEDS: TIOTROPIUM 18 MCG INH POWDER INH SCH (07:44)
[2019-06-28] MEDS ORDERED: FUROSEMIDE 40 MG TAB PO SCH (09:00)
[2019-06-28] MEDS: MULTIVITAMINS/MINERALS TAB PO SCH (09:18)
[2019-06-28] MEDS: APIXAB 2.5 MG TABLET PO SCH ×2 (09:18→18:14)
[2019-06-28] MEDS: ASPIRIN 325 MG TAB PO SCH (09:18)
[2019-06-28] MEDS: METOPROLOL TARTRATE 50 MG TAB PO SCH (09:20)
[2019-06-28] MEDS: DOCUSATE SODIUM 100 MG CAP PO SCH (09:23)
[2019-06-28] MEDS: SENNOSIDES 8.6 MG TAB PO SCH (09:23)
[2019-06-28] MEDS: GABAPENTIN 300 MG CAP PO SCH ×3 (09:31→21:00)
--- NOTE | 2019-06-28 11:04 | Progress Note ---
DATE: SUBJECTIVE: The patient notes some improvement. He has less congestion. He is not complaining of chest pain or fevers. PHYSICAL EXAMINATION: VITAL SIGNS: The blood pressure is 151/65 and the saturation is 94%. The pulse is 63. HEENT: Shows no facial swelling or erythema. CARDIAC: Reveals regular rate and rhythm with normal S1 and S2. LUNGS: Auscultation of lungs reveals clear breath sounds bilaterally. There is no wheezing. ABDOMEN: Soft, nontender. There is no rebound or guarding. EXTREMITIES: Show no leg edema or calf tenderness. There is no cyanosis or clubbing. SKIN: Shows no rashes. NEUROLOGICAL: Shows no focal abnormalities. IMPRESSION: 1. Acute on chronic systolic congestive heart failure. 2. Chronic obstructive pulmonary disease with acute exacerbation. 3. Atrial fibrillation. 4. Gastroesophageal reflux. 5. Hypertension. PLAN: 1. Repeated low-dose Solu-Medrol today. 2. Repeat Lasix 40 mg IV. 3. Continue metoprolol and Eliquis. 4. Afterload reduction. 5. Continue antibiotics. 6. Awaiting cardiology evaluation. Jaron Rodas MD [facility] /[id number]
[2019-06-28] MEDS ORDERED: METHYLPREDNISOLONE SOD SUCC 40 MG/ML VIAL 1ML IV ONE (11:30)
[2019-06-28] MEDS ORDERED: FUROSEMIDE INJ 10 MG/ML 4 ML VIAL IV ONE (11:30)
--- NOTE | 2019-06-28 16:25 | Consultation ---
DATE OF CONSULTATION: 06/28/2019 Cardiology Consultation Thank you so much for asking me to see this nice man again in consultation. HISTORY OF PRESENT ILLNESS: Mr. Harden is a pleasant 73-year-old , who recently moved here from [place], presents to the emergency room again with a complaint that he was having coughing and left-sided chest discomfort with cough. PAST MEDICAL HISTORY: Complex, he was previously hospitalized in [facility] in November of 2018 when he had a perirectal abscess. He has now moved back from [place] and was recently hospitalized on June 10, 2019, with pneumonia and congestive heart failure. He admits to me that when he went home he did not use the diuretic that we prescribed, had something at home himself, but he cannot tell me what it was. He had previous coronary artery bypass graft surgery at the [facility] in July 2017. He is ambulatory. MEDICATIONS: 1. Albuterol. 2. Amlodipine 5 mg daily. 3. Apixaban 2.5 mg twice daily. 4. Atorvastatin 80 mg daily. 5. He was given prescription for furosemide 40 mg daily, but may or may not be using that. 6. Gabapentin 300 mg twice a day. 7. Levaquin. 8. Metoprolol 25 mg. 9. Potassium 10 mEq daily. PERSONAL AND SOCIAL HISTORY: Stopped smoking in July of 2017 at the time of bypass graft surgery. PHYSICAL EXAMINATION: GENERAL: At this time shows a large obese, black man, who is 5 feet 8 inches tall. Reported weight of 235 pounds. HEAD, EYES, EARS, NOSE, and THROAT: Unremarkable. NECK: Thick. THORAX: Healed midline sternotomy. HEART: Sounds S1 and S2 are equal. No distinct murmur. LUNGS: Relatively clear at this time. ABDOMEN: Protuberant. EXTREMITIES: Have trace pretibial edema. PERTINENT LABORATORY STUDIES: Show white count 7.9 and hemoglobin 13.7. Glucose 159, BUN 18, and creatinine 1.0. ASSESSMENT: 1. Exacerbation of congestive heart failure. 2. Recovering pneumonia. 3. Atrial flutter, chronic. PLAN: Agree with the current management. His echo performed on June 10 showed EF 30% to 35% and mild mitral regurgitation. Thank you for asking me to see him in consultation. Jose Luis, MD [facility] /[id number] cc: Jaron Rodas MD
[2019-06-28] MEDS: GUAIFENESIN 600MG/DEXTROMETHORPHAN 30MG TABSR PO SCH (18:14)
--- NOTE | 2019-06-28 19:10 | NUR ---
Complete nursing rounds with morning nurse. Pt alert and oriented to name. Pt lying in bed HOB 45 degrees. Denies pain at this time. Call light within reach. Will continue to monitor.
[2019-06-29 00:25] VITALS: BP 133/57
[2019-06-29] MEDS: ALBUTEROL/IPRATROPIUM 3 ML NEB NEB SCH ×2 (01:02→07:35)
[2019-06-29 05:47] LABS: BASOPHILS % 0.1 % (0.0-1.0); EOSINOPHILS % 0.1 % (0.0-6.0); HEMATOCRIT 40.5 % (38.2-49.6); HEMOGLOBIN 13.8 g/dL (14.0-18.0); LYMPHOCYTES # (AUTO) 1.6 (1.0-3.2); LYMPHOCYTES % 18.5 % (18.0-39.1); MEAN CORPUSCULAR HEMOGLOBIN 31.6 pg (28-32); MEAN CORPUSCULAR HGB CONC 34.1 g/dL (31-35); MEAN CORPUSCULAR VOLUME 92.7 fL (81-99); MONOCYTES % 11.3 % (4.4-11.3); NEUTROPHILS # (AUTO) 6.1 (2.1-6.9); NEUTROPHILS % 69.7 % (38.7-80.0); PLATELET COUNT 181 x10e3/uL (140-360); RED BLOOD COUNT 4.37 x10e6/uL (4.3-5.7); RED CELL DISTRIBUTION WIDTH 14.2 % (11.7-14.4)
[2019-06-29 05:56] VITALS: BP 133/59
[2019-06-29] MEDS: PIPER-TAZ 3.375 GM 50 ML IV SCH (06:00)
[2019-06-29 06:16] LABS: ALANINE AMINOTRANSFERASE 20 IU/L (0-55); ALBUMIN 3.1 g/dL (3.5-5.0); ALBUMIN/GLOBULIN RATIO 0.8 (0.8-2.0); ALKALINE PHOSPHATASE 95 IU/L (40-150); ANION GAP 12.7 mmol/L (8-16); BLOOD UREA NITROGEN 18 mg/dL (7-26); BUN/CREATININE RATIO 17 (6-25); CALCIUM 8.8 mg/dL (8.4-10.2); CARBON DIOXIDE 27 mmol/L (22-29); CHLORIDE 102 mmol/L (98-107); CREATININE, SERUM 1.04 mg/dL (0.72-1.25); EST GLOMERULAR FILTRATION RATE > 60 ML/MIN (60-); GLUCOSE 161 mg/dL (74-118); POTASSIUM 3.7 mmol/L (3.5-5.1); SODIUM 138 mmol/L (136-145)
--- NOTE | 2019-06-29 06:55 | NUR ---
Rounds completed with morning nurse. Pt lying in bed watching TV. Denies pain or discomfort at this time. No acute distress noted
--- NOTE | 2019-06-29 07:00 | NUR ---
RCD PT AT BED PT IS ALERT AND ORIENTED PT RESTING ON BED NO SIGNS OF ANY DISTRESS NOTED IV PATENT BY SALINE FLUSH BED LOW AND LOCKED CALL LIGHT IN REACH
[2019-06-29] MEDS: TIOTROPIUM 18 MCG INH POWDER INH SCH (07:35)
[2019-06-29] MEDS ORDERED: LASIX40 MG PO (08:55)
[2019-06-29] MEDS ORDERED: MUCINEX DM ER1 EACH PO (08:55)
[2019-06-29] MEDS ORDERED: K-TAB10 MEQ PO (08:55)
[2019-06-29] MEDS ORDERED: NITROGLYCERIN0.4 MG SL (08:58)
[2019-06-29 08:59] VITALS: BP 133/59
[2019-06-29] MEDS: METOPROLOL TARTRATE 50 MG TAB PO SCH (09:00)
[2019-06-29] MEDS: SENNOSIDES 8.6 MG TAB PO SCH (09:00)
[2019-06-29] MEDS: GABAPENTIN 300 MG CAP PO SCH (09:00)
[2019-06-29] MEDS: GUAIFENESIN 600MG/DEXTROMETHORPHAN 30MG TABSR PO SCH (09:00)
[2019-06-29] MEDS: APIXAB 2.5 MG TABLET PO SCH (09:00)
[2019-06-29] MEDS: DOCUSATE SODIUM 100 MG CAP PO SCH (09:00)
[2019-06-29] MEDS: MULTIVITAMINS/MINERALS TAB PO SCH (09:00)
[2019-06-29] MEDS: ASPIRIN 325 MG TAB PO SCH (09:00)
--- NOTE | 2019-06-29 10:50 | NUR ---
PT WENT HOME IN SAFE CONDITION
== END 2019-06-29 10:59 | disposition home or self-care (01) | DRG 291 ==
LOC: FSED 20:04 → ERHOLD 22:37 → MED/SURG2 06-27 00:35
PROVIDERS: ADMIT Internal Medicine; ATTEND Internal Medicine
DX: I11.0 Hypertensive heart disease with heart failure (principal); J18.9 Pneumonia, unspecified organism; J44.1 Chronic obstructive pulmonary disease with (acute) exacerbation; I48.92 Unspecified atrial flutter; J44.0 Chronic obstructive pulmonary disease with (acute) lower respiratory infection; I50.23 Acute on chronic systolic (congestive) heart failure; I48.91 Unspecified atrial fibrillation; I34.0 Nonrheumatic mitral (valve) insufficiency; E66.01 Morbid (severe) obesity due to excess calories; E78.5 Hyperlipidemia, unspecified; K21.9 Gastro-esophageal reflux disease without esophagitis; Z68.35 Body mass index [BMI] 35.0-35.9, adult; Z23 Encounter for immunization; Z79.01 Long term (current) use of anticoagulants; I25.2 Old myocardial infarction; Z95.1 Presence of aortocoronary bypass graft; Z95.5 Presence of coronary angioplasty implant and graft; Z87.891 Personal history of nicotine dependence
CPT/HCPCS: 36415; 71045; 80048; 80053; 82550; 82553; 84484; 85025; 85610; 87040; 93005; 94640; 99284; J1940; J2543; J2920; J7050